=== PATIENT | male | born 1950 | race Caucasian/White ===

== ENCOUNTER 2017-02-01 08:13 | Inpatient (IN) | payer OTHER, MEDICARE ==
[2017-01-14 12:03] VITALS: BMI 33.0
--- NOTE | 2017-01-14 12:30 | PAT Medication Instructions ---
Service Date Jan 14, 2017. Current Home Medication List Etodolac (Etodolac), 400 MG PO PRN PRN for Pain Multiple Vitamins W/ Minerals (Centrum Silver Adult 50+), 1 TAB PO QAM Omeprazole (Prilosec), 20 MG PO QAM PRN for ACID REFLUX Medication Instructions For Your Scheduled Surgery - Hold the following medications the morning of surgery: Etodolac (Etodolac), 400 MG PO PRN PRN for Pain (otherwise okay to continue per surgeon) Multiple Vitamins W/ Minerals (Centrum Silver Adult 50+), 1 TAB PO QAM - Take the following medications the morning of surgery with a sip of water OTHERWISE NOTHING TO EAT OR DRINK AFTER MIDNIGHT: Omeprazole (Prilosec), 20 MG PO QAM PRN for ACID REFLUX If you have any questions please call us at [phone] or [phone] or [phone]
[2017-01-14 13:02] LABS: BASO % 0.6 %; BASO ABS # 0.04 K/uL (0-0.2); COMPLETE YES; EOS % 4.2 %; HEMATOCRIT 40.8 % (42-52); IG% 0.3 %; LYMPH % 29.8 %; MEAN CELL VOLUME 89.3 fL (80-100); MEAN CORPUSCULAR HEMOGLOBIN 31.5 pg (25-34); MEAN CORPUSCULAR HGB CONC 35.3 g/dl (32-36); MEAN PLATELET VOLUME 8.9 fL (7.4-10.4); MONO % 7.7 %; NEUT % 57.4 %; PLATELET COUNT 219 K/uL (130-400); RED BLOOD COUNT 4.57 M/uL (4.7-6.1); WHITE BLOOD COUNT 6.37 K/uL (4.8-10.8)
[2017-01-14 13:04] LABS: URINE APPEARANCE CLEAR (CLEAR); URINE BILIRUBIN NEG (NEG); URINE COLOR YELLOW; URINE NITRITE NEG (NEG); URINE PH 6.5 (4.5-7.5); URINE SPECIFIC GRAVITY 1.014 (1.000-1.030); UROBILINOGEN NEG (NEG); ZZUR CULT IF INDIC CLEAN CATCH NO
[2017-01-14 13:09] LABS: MANUAL MICROSCOPIC REQUIRED? NO; REVIEW REQ? NO
[2017-01-14 13:17] LABS: PROTHROMBIN TIME (PATIENT) 10.2 SECONDS (9.0-12.0)
[2017-01-14 13:25] LABS: BUN/CREATININE RATIO 9.9 (10-20); CALCIUM 8.4 mg/dl (8.5-10.1); CREATININE 1.1 mg/dl (0.60-1.40); POTASSIUM 4.3 mmol/L (3.5-5.1)
--- NOTE | 2017-01-14 13:33 | DIAGNOSTIC IMAGING REPORT ---
CHEST PREADMISSION(PA/LAT) CLINICAL HISTORY: PAT preoperative evaluation COMPARISON STUDY: 05/08/2014 FINDINGS: Moderate tortuosity thoracic aorta. Lungs are considered clear. Diaphragms are smooth. IMPRESSION: No acute process. Electronically signed by: Shaq Pollack M.D. 01/14/2017 1:31 PM Dictated Date/Time: 01/14/2017 1:31 PM
--- NOTE | 2017-01-29 15:12 | HISTORY & PHYSICAL EXAMINATION ---
DATE OF ADMISSION: 02/01/2017 CHIEF COMPLAINT: Right knee pain. HISTORY OF PRESENT ILLNESS: Mr. Hill is a 66-year-old male with a 15-year history of pain in his right knee. The patient states his pain has worsened over the last 6 months. He has pain with his daily activities. He has limited standing and walking tolerance. Pain is worse with weightbearing. The patient has had injections, anti-inflammatories, and home exercise program without relief. He has failed conservative treatment and is scheduled for right knee replacement. PAST MEDICAL HISTORY: Spinal stenosis. He denies heart disease, diabetes or DVT. PAST SURGICAL HISTORY: Hernia repair, rotator cuff surgery, jaw surgery and inguinal hernia repair. SOCIAL HISTORY: The patient drinks 3 drinks per week. He denies tobacco use. He lives in a 2-story home. He is and retired. FAMILY HISTORY: Negative for DVT. MEDICATIONS: Etodolac 400 mg b.i.d., omeprazole 20 mg daily, Centrum Silver 1 daily. ALLERGIES: None. REVIEW OF SYSTEMS: See HPI. Ten other systems reviewed, all negative. PHYSICAL EXAMINATION: VITAL SIGNS: Height 5 feet 8 inches, weight 218 pounds, BMI is 33. GENERAL: This is a well-developed, well-nourished male who is alert and oriented x3. Mood and affect are appropriate. HEENT: Normocephalic, atraumatic. Mucous membranes are moist and intact. NECK: Supple without lymphadenopathy. HEART: Regular rate and rhythm without murmurs, rubs or gallops. LUNGS: Clear to auscultation without wheezes or rhonchi. ABDOMEN: Soft and nontender. Bowel sounds are equal and active. EXTREMITIES: No ecchymosis, redness or warmth. Thigh and calf are soft and nontender. He has varus deformity. Range of motion is from 0-115 degrees with +1 laxity. He is neurovascularly intact with +5/5 strength. X-RAY EXAMINATION: AP and lateral views show joint space narrowing and osteophyte formation. IMPRESSION: Degenerative joint disease, right knee. PLAN: The patient will be admitted for a right total knee arthroplasty. We will plan on aspirin for DVT prophylaxis. The patient's PCP is Dr. Terrence Yen. He will have [facility] for home physical therapy.
[2017-02-01] VITALS (9 sets, daily range): BP systolic 124–159; BP diastolic 73–87; PULSE 62–84; TEMP 36.4–36.9; O2SAT 94–97; Ht 175.3 cm; Wt 99.8 kg
[~2017-02-01] VITALS: Ht 175.3 cm; Wt 99.8 kg
[~2017-02-01 08:13] MED LIST: ACETAMINOPHEN 500 MG TAB PO SCH; BUPIVACAINE 0.5 % 5 MG/1 ML PF 10ML VIAL ONE; CEFAZOLIN 2000 MG/60 ML D5W 60 ML IV SCH; CeleBREX 200 MG CAP PO SCH; DEXAMETHASONE 4 MG TAB PO SCH; ETOD400T PO; FAMOTIDINE 20 MG TAB PO SCH; GABAPENTIN 300 MG CAP PO SCH; LACTATED RINGER'S 1000ML 1,000 ML IV SCH; LACTATED RINGER'S 1000ML 500 ML IV ONE; LACTATED RINGER'S 1000ML IV SCH; METOCLOPRAMIDE HCL 10 MG TAB PO SCH; MULT-845 PO; NURSING VERBAL MED ORDER STA; OXYCODONE HCL 10 MG TABCR (OXYCONTIN) PO SCH; POLYMYXIN B SULFATE 100,000 UNITS in NSS 100ML IR SCH; PRLSR20 PO; ROPIVACAINE 5MG/ML 30 ML 150 MG, BUPIVACAINE/EPINEPHR 0.5% MPF 30 ML, KETOROLAC TROMETH... INFIL SCH; VANCOMYCIN INJ 400 MG in NSS 100ML IR SCH
[2017-02-01] MEDS ORDERED: EpHEDrine SULFATE INJ 50 MG/ML AMP IV PRN (09:00)
[2017-02-01] MEDS ORDERED: MEPERIDINE HCL 25 MG/ML CARP IV PRN (09:00)
[2017-02-01] MEDS ORDERED: ONDANSETRON INJ 2 MG/ML 2 ML VIAL IV PRN ×2 (09:00→11:45)
[2017-02-01] MEDS ORDERED: ATROPINE SULFATE 0.1 MG/ML 5ML SYR IV PRN (09:00)
[2017-02-01] MEDS ORDERED: MoRPHine SULFATE 10 MG/ML CARP/VIAL IV PRN (09:00)
[2017-02-01] MEDS ORDERED: FENTANYL CITRATE INJ 50 MCG/1 ML 2 ML VIAL IV PRN (09:00)
--- NOTE | 2017-02-01 09:35 | History & Physical Bridge Note ---
H&P Re-Evaluation Bridge Note: I have examined the patient, reviewed the History & Physical and in the interval since the performance of the History & Physical I have noted the following changes of clinical significance: No changes noted
[2017-02-01] MEDS ORDERED: MIDAZOLAM HCL 1 MG/ML 2ML VIAL ONE (09:48)
[2017-02-01] MEDS ORDERED: FENTANYL CITRATE INJ 50 MCG/1 ML 2 ML VIAL ONE (09:48)
[2017-02-01] MEDS ORDERED: ORTHO JOINT ANESTHETIC ONE (10:21)
[2017-02-01] MEDS ORDERED: BUPIVACAINE/EPINEPHRINE 0.25% 1:200,000 30 ML VIAL ONE (10:22)
[2017-02-01] MEDS ORDERED: POVIDONE-IODINE OP SOLN 30 ML BTL ONE (10:22)
[2017-02-01] MEDS ORDERED: BACITRACIN 50000 UNIT VIAL ONE (10:22)
[2017-02-01] MEDS ORDERED: LIDOCAINE HCL 2% 2 ML VIAL (20MG/ML) ONE (11:29)
[2017-02-01] MEDS ORDERED: PROPOFOL IV EMULSION 10 MG/ML 20 ML VIAL IV ONE (11:29)
--- NOTE | 2017-02-01 11:43 | [facility] Post Operative Brief Note ---
Immediate Operative Summary Operative Date Feb 01, 2017. Pre-Operative Diagnosis Right knee degenerative joint disease Post-Operative Diagnosis Right knee degenerative joint disease Procedure(s) Performed Right total knee arthroplasty Surgeon Dr. Andrea Barksdale Swatch Folder Surgeon(s) William Craft PA-C Estimated Blood Loss 75ml Findings djd Specimens A. Right knee bone and tissue Complication(s) None Disposition Recovery Room / PACU
[2017-02-01] MEDS ORDERED: ALUMINUM/MAGNESIUM/SIMETH (MAALOX MAX) 30 ML UDC PO PRN (11:45)
[2017-02-01] MEDS ORDERED: DiphenhydrAMINE HCL 50 MG/ML VIAL IV PRN (11:45)
[2017-02-01] MEDS ORDERED: MoRPHine SULFATE 2 MG/ML CARP IV PRN (11:45)
[2017-02-01] MEDS ORDERED: ZOLPIDEM TARTRATE 5 MG TAB PO PRN (11:45)
[2017-02-01] MEDS ORDERED: TRAMADOL HCL 50 MG TAB PO PRN (11:45)
[2017-02-01] MEDS ORDERED: SOD PHOSPHATE/SOD BIPHOSPHATE ENEMA 132 ML BTL PR PRN (11:45)
[2017-02-01] MEDS ORDERED: MAGNESIUM HYDROXIDE SUSP 30 ML UDC PO PRN (11:45)
[2017-02-01] MEDS ORDERED: KETOROLAC TROMETHAMINE 15 MG/ML VIAL IV. PRN (11:45)
[2017-02-01] MEDS ORDERED: BISACODYL 10 MG SUPP PR PRN (11:45)
[2017-02-01] MEDS ORDERED: METOCLOPRAMIDE HCL INJ 5 MG/ML 2 ML VIAL IV PRN (11:45)
--- NOTE | 2017-02-01 12:52 | DIAGNOSTIC IMAGING REPORT ---
RIGHT KNEE 2 VIEWS History: Right total knee arthroplasty. Degenerative arthritis. Postop. FINDINGS: The patient is status post a right total knee arthroplasty. The hardware is intact. No fracture or dislocation. Surgical drains are in place. IMPRESSION: Right total knee arthroplasty. No evidence for hardware complication. Electronically signed by: James Cannon M.D. 02/01/2017 12:50 PM Dictated Date/Time: 02/01/2017 12:49 PM
--- NOTE | 2017-02-01 13:30 | Anesthesiology Progress Note ---
Anesthesia Post Op Note Date & Time Feb 01, 2017 at 13:30 Vital Signs Pain Intensity: 0 Vital Signs Past 12 Hours Date Time Temp Pulse Resp B/P Pulse Ox O2 Delivery O2 Flow Rate FiO2 02/01/17 13:25 36.8 64 12 123/72 97 Nasal Cannula 2 02/01/17 13:15 66 18 123/72 97 Nasal Cannula 2 02/01/17 13:05 60 12 117/75 95 Nasal Cannula 2 02/01/17 12:55 68 12 118/76 94 Nasal Cannula 2 02/01/17 12:45 66 19 112/71 96 Nasal Cannula 2 02/01/17 12:35 70 18 127/74 96 Nasal Cannula 2 02/01/17 12:25 71 15 124/70 95 Nasal Cannula 2 02/01/17 12:19 36.5 77 18 122/75 95 Nasal Cannula 2 02/01/17 08:30 36.6 84 20 142/84 96 Room Air Notes Mental Status: alert / awake / arousable, participated in evaluation Pt Amnestic to Procedure: Yes Nausea / Vomiting: adequately controlled Pain: adequately controlled Airway Patency, RR, SpO2: stable & adequate BP & HR: stable & adequate Hydration State: stable & adequate Neuraxial Anesthesia: was administered, sensory block is resolving Anesthetic Complications: no major complications apparent
[2017-02-01] MEDS: TRANEXAMIC ACID INJ 1,000 MG in SODIUM CHLORIDE 0.9% 100ML 100 ML IV SCH ×2 (14:25→14:27)
[2017-02-01] MEDS: D5W AND 1/2NSS + 20MEQ KCL 1,000 ML IV SCH ×2 (14:49→23:47)
[2017-02-01] MEDS: ACETAMINOPHEN 500 MG TAB PO SCH ×2 (14:49→21:44)
--- NOTE | 2017-02-01 17:35 | OPERATIVE REPORT ---
DATE OF OPERATION: 02/01/2017 PREOPERATIVE DIAGNOSIS: Degenerative arthritis, right knee. POSTOPERATIVE DIAGNOSIS: Same. PROCEDURE: Right total knee with patient matched implant. SURGEON: Dr. Barksdale. FRAMING MILL SUPERVISOR: JOSE Morillo. ANESTHESIA: Spinal. BLOOD LOSS: 75 mL. REPLACEMENT FLUIDS: 1500 mL crystalloid. DRAINS: Hemovac x2. CULTURES: None. COMPLICATIONS: None. COMPONENTS USED: [facility] Knee System: Femur size 9, tibia size 8 x 9, patella size 41. NOTE: JOSE Morillo was present and assisted throughout due to the complicated nature of this case. He helped with preparation and set up, he first assisted throughout and personally closed the capsule, subcutaneous and skin layers and applied the postoperative dressing. DESCRIPTION: Following satisfactory spinal, the patient was supine. A tourniquet was placed but not inflated. The lower extremity was prepared with ChloraPrep and draped sterilely. Following a surgical time-out, a midline incision was made with a median parapatellar arthrotomy. The knee showed grade 4 changes most marked in the medial and patellofemoral compartments. The anterior cruciate ligament was absent. The posterior cruciate ligament was excised and the patient matched femoral block was applied. Femoral distal rotation and resection were set and completed. The 4-in-1 block was used to finish preparation of the femur. The patient matched tibial block was applied. Tibial resection was completed. The patella was freehand cut. Soft tissue balancing was completed and a trial reduction showed good tensioning and stability on the collateral ligaments, stable range of motion, and the patella tracked well. The trial components were removed. The capsule was prepared with the orthopedic cocktail. After irrigation, the components were cemented using Simplex G cement. A Betadine soak was performed. When the cement had hardened, the Betadine was irrigated. Two drains were placed. The arthrotomy was closed with a running suture of 0 V-Loc. The subcutaneous tissues with 2-0 Vicryl and the skin with a running subcuticular stitch of 3-0 V-Loc. Dermabond and a dry dressing were applied. The patient was returned to his bed in stable condition. I attest to the content of the Intraoperative Record and any orders documented therein. Any exceptio ns are noted below.
[2017-02-01] MEDS ORDERED: TRANEXAMIC ACID INJ 1,000 MG in SODIUM CHLORIDE 0.9% 100ML 100 ML IV SCH (18:00)
[2017-02-01] MEDS: CEFAZOLIN IV 2,000 MG in DEXTROSE 5% 50ML 50 ML IV SCH (18:05)
[2017-02-01] MEDS: OXYCODONE HCL 10 MG TABCR (OXYCONTIN) PO SCH (20:44)
[2017-02-01] MEDS: ASPIRIN 81 MG ECTAB PO SCH (20:45)
[2017-02-01] MEDS ORDERED: SENNA 8.6 MG TAB PO SCH (21:00)
[2017-02-01] MEDS: OXYCODONE HCL IR 5 MG TAB (IMMEDIATE RELEASE) PO PRN (23:50)
[2017-02-02] MEDS: CEFAZOLIN IV 2,000 MG in DEXTROSE 5% 50ML 50 ML IV SCH (01:51)
[2017-02-02 03:32] VITALS: BP 117/72; PULSE 70; TEMP 36.6; O2SAT 95
[2017-02-02] MEDS: ACETAMINOPHEN 500 MG TAB PO SCH ×2 (05:36→14:12)
[2017-02-02 07:00] VITALS: BP 118/76; PULSE 65; O2SAT 93
--- NOTE | 2017-02-02 07:40 | Orthopedic Progress Note ---
Orthopedic Progress Note Date of Service Feb 02, 2017. Subjective Post OP Day: 1 Reports: feeling well, Denies: SOB, calf pain, chest pain, light headedness, nausea / vomiting Objective calves soft nontender, N/V intact, dressing C/D/I, A&O x3, toes mobile, hemovac drainage (300ml last shift) Date Time Temp Pulse Resp B/P Pulse Ox O2 Delivery O2 Flow Rate FiO2 02/02/17 03:32 36.6 70 15 117/72 95 Room Air 02/02/17 00:15 Room Air 02/01/17 23:30 36.4 69 18 159/80 97 Room Air 02/01/17 19:20 36.7 77 18 135/87 94 Nasal Cannula 2.0 02/01/17 17:37 67 16 133/82 97 Nasal Cannula 2.0 02/01/17 16:15 96 Nasal Cannula 2.0 02/01/17 16:01 65 16 129/81 02/01/17 15:11 73 16 130/81 02/01/17 14:16 62 16 124/76 02/01/17 13:50 36.9 69 16 125/73 96 Nasal Cannula 2.0 02/01/17 13:50 96 Nasal Cannula 2.0 02/01/17 13:50 96 Nasal Cannula 2.0 02/01/17 13:25 36.8 64 12 123/72 97 Nasal Cannula 2 02/01/17 13:15 66 18 123/72 97 Nasal Cannula 2 02/01/17 13:05 60 12 117/75 95 Nasal Cannula 2 02/01/17 12:55 68 12 118/76 94 Nasal Cannula 2 02/01/17 12:45 66 19 112/71 96 Nasal Cannula 2 02/01/17 12:35 70 18 127/74 96 Nasal Cannula 2 02/01/17 12:25 71 15 124/70 95 Nasal Cannula 2 02/01/17 12:19 36.5 77 18 122/75 95 Nasal Cannula 2 02/01/17 08:30 36.6 84 20 142/84 96 Room Air Laboratory Results 24 Hours: Test 02/02/17 07:22 Assessment & Plan Assessment: POD 1 s/p Right TKA Plan: PT/OT Planning for home with [facility] Possible dc to home today. Inhouse Planning Pain Management: Celebrex, Toradol, Oxycontin, Ultram, PO Tylenol, Oxy IR DVT Prophylaxis: TEDs, SCDs, ASA Discharge Planning Discharge Planning: home with home health Pain Management: Morphine (MS Contin), PO Tylenol, Oxy IR DVT Prophylaxis: TEDs, ASA Therapy: Physical Therapy
--- NOTE | 2017-02-02 07:44 | Discharge Instructions ---
Discharge Instructions Date of Service Feb 02, 2017. Admission Reason for Admission: Right Knee Degenerative Arthritis Discharge Discharge Diagnosis / Problem: Right Knee Djd Discharge Goals Goal(s): Decrease discomfort, Improve function Activity Recommendations Activity Limitations: per Instructions/Follow-up section Weightbearing Status: Right weightbearing (as tolerated) . Instructions / Follow-Up Instructions / Follow-Up ACTIVITY RECOMMENDATIONS: SELF CARE INSTRUCTIONS AFTER TOTAL KNEE REPLACEMENT A. You may need to continue a physical therapy program after discharge from the hospital. There are several options available to you. Your doctor will assist you in selecting the best one for you. 1. An out-patient facility 2 to 3 times a week for therapy or home therapy. 2. Continue working on all exercises taught to you in the hospital. Your goals should be to increase bending of your knee to 90 degrees and beyond and to fully straighten your knee. B. You may progress at your own pace from walking with a walker or crutches to a cane; then to no assistive devices. C. Make walking a part of your daily routine. Be up as much as comfortable with rest periods throughout the day. Rest with leg elevation is very important. Use the ice wrap frequently for the first 3-4 weeks. D. There are no restrictions on activities. You may ride in a car, shop, participate in patient portal representative and all social activities. E. Wear the long elastic stockings (RACHAEL hose) 20 hours a day for 2 weeks after surgery. They can be removed several times a day for laundering and for a bath. F. You may shower, no tub baths until cleared by your doctor. SPECIAL CARE INSTRUCTIONS: VERY IMPORTANT TO READ AND REVIEW A. There are a few signs you need to watch for after you are home. Call [facility] if you notice any of the followin. Increased severe knee pain. Some pain is expected especially when you exercise. 2. Increased swelling in your leg or knee; pain or swelling of the calf muscle in either lower leg. 3. Any fluid drainage from the incision. 4. Shortness of breath or chest pain. B. Please call [facility] at if you have any concerns or questions about your operation or recovery. The doctor or his nurse will return your call promptly. C. You must take antibiotics before dental work, bladder, bowel or other surgery. Your doctor will provide you with a permanent care to carry describing this precaution. IMPORTANT: * REMEMBER TO TAKE ASPIRIN, 81 MG, TWICE DAILY FOR 4 WEEKS UNLESS OTHERWISE DIRECTED. THIS IS YOUR BLOOD THINNER. * HIGH RISK PATIENTS MAY BE PRESCRIBED A STRONGER BLOOD THINNER. THIS WILL BE PROVIDED AT DISCHARGE. * CALL IF INCREASED PAIN, REDNESS, DRAINAGE OR FEVER GREATER THAT 101. * WEAR RACHAEL HOSE 20 HOURS PER DAY FOR 2 WEEKS. * DERMABOND Prineo- This is a mesh tape dressing that is covered with glue. It should remain in place until the incision is properly healed, usually 10-14 days. This dressing is designed to naturally slough off. You may trim the excess mesh tape as it peels off. Incision may be briefly wet in a shower. Dry immediately by blotting with a clean, dry towel. Do not bath or swim until instructed by your doctor. Do not scratch, rub, or pick at the dressing. Do not apply any topical ointments or lotions until dressing is completely removed and/or instructed by your doctor. There may be a small piece of suture material at one end of your incision. Do not pull or trim this. If it is bothersome or catching on clothing, you may cover it with a band-aid. . FOLLOW UP VISIT: If appointment is not already scheduled: Please call [facility] to make a follow-up appointment for 2 weeks after your surgery at . Current Hospital Diet Patient's current hospital diet: Regular Diet Discharge Diet Recommended Diet: Regular Diet Procedures Procedures Performed: Right total knee arthroplasty Pending Studies Studies pending at discharge: no Medical Emergencies . Who to Call and When: Medical Emergencies: If at any time you feel your situation is an emergency, please call 911 immediately. . Non-Emergent Contact Non-Emergency issues call your: Surgeon Call Non-Emergent contact if: temperature is above 101.5, your pain is not controlled, your pain is worsening, wound has increased drainage, wound has increased redness . "Provider Documentation" section prepared by William Craft. VTE Core Measure Inpt VTE Proph given/why not?: Other Anticoagulation, T.E.D. Stockings, SCD's [place] Drug Monitoring Program Search Results: patient reviewed within database, no issues identified
[2017-02-02] MEDS ORDERED: ONDA8TAB6 PO (07:46)
[2017-02-02] MEDS ORDERED: ACET-1138 PO (07:46)
[2017-02-02] MEDS ORDERED: RXC5 PO (07:46)
[2017-02-02] MEDS ORDERED: SNK PO (07:46)
[2017-02-02] MEDS ORDERED: ASPEC81 PO (07:46)
[2017-02-02] MEDS ORDERED: MORP15TA19 PO (07:48)
--- NOTE | 2017-02-02 07:48 | Anesthesiology Progress Note ---
Anesthesia Post Op Note Date & Time Feb 02, 2017 at 07:47 Vital Signs Pain Intensity: 6.0 Vital Signs Past 12 Hours Date Time Temp Pulse Resp B/P Pulse Ox O2 Delivery O2 Flow Rate FiO2 02/02/17 03:32 36.6 70 15 117/72 95 Room Air 02/02/17 00:15 Room Air 02/01/17 23:30 36.4 69 18 159/80 97 Room Air Notes Mental Status: alert / awake / arousable, participated in evaluation Pt Amnestic to Procedure: Yes Nausea / Vomiting: adequately controlled Pain: adequately controlled Airway Patency, RR, SpO2: stable & adequate BP & HR: stable & adequate Hydration State: stable & adequate Anesthetic Complications: no major complications apparent
[2017-02-02 07:49] LABS: HEMATOCRIT 35.7 % (42-52); MEAN CELL VOLUME 88.6 fL (80-100); MEAN CORPUSCULAR HEMOGLOBIN 31.5 pg (25-34); MEAN CORPUSCULAR HGB CONC 35.6 g/dl (32-36); MEAN PLATELET VOLUME 8.7 fL (7.4-10.4); PLATELET COUNT 201 K/uL (130-400); RED BLOOD COUNT 4.03 M/uL (4.7-6.1); WHITE BLOOD COUNT 11.85 K/uL (4.8-10.8)
[2017-02-02 08:12] LABS: BUN/CREATININE RATIO 15.6 (10-20); CALCIUM 7.8 mg/dl (8.5-10.1); CREATININE 1.1 mg/dl (0.60-1.40); POTASSIUM 4.4 mmol/L (3.5-5.1)
[2017-02-02] MEDS: OXYCODONE HCL 10 MG TABCR (OXYCONTIN) PO SCH (08:27)
[2017-02-02] MEDS: ASPIRIN 81 MG ECTAB PO SCH (08:30)
[2017-02-02] MEDS: OXYCODONE HCL IR 5 MG TAB (IMMEDIATE RELEASE) PO PRN ×2 (08:33→14:14)
[2017-02-02] MEDS ORDERED: PANTOprazole SOD 40 MG TAB PO SCH (09:00)
[2017-02-02] MEDS ORDERED: MULTIVITAMIN TAB PO SCH (09:00)
[2017-02-02] MEDS: D5W AND 1/2NSS + 20MEQ KCL 1,000 ML IV SCH (10:30)
[2017-02-02] MEDS ORDERED: CLB200 PO (12:08)
[2017-02-02 12:30] VITALS: BP 143/85; PULSE 68; PULSE 70; TEMP 36.6; O2SAT 98
[2017-02-02 12:32] VITALS: BP 143/85; PULSE 70; TEMP 36.6; O2SAT 98
--- NOTE | 2017-02-03 13:35 | DISCHARGE SUMMARY ---
DISCHARGE DIAGNOSIS: Degenerative joint disease, right knee. SECONDARY DIAGNOSES: Spinal stenosis. CONSULTS: None. COMPLICATIONS: None. PROCEDURES: Right total knee arthroplasty performed by Dr. Fernando Barksdale on 02/01/2017. BRIEF HISTORY: As dictated in the history and physical. HOSPITAL SUMMARY: The patient was admitted on the above date and had the above-noted surgery performed which he tolerated well. On the first postoperative day, patient was feeling well and had no complaints. Calves were soft and nontender, neurovascularly intact. Dressings clean, dry and intact. Toes were mobile and Hemovac drainage was 300 mL the last shift. Vital signs were stable. He was afebrile and hemoglobin was 12.7. The patient was started on physical therapy protocol and continued on DVT prophylaxis and pain management. He was progressing well with his physical therapy and it was felt that he was remaining stable and it was felt he could be discharged to home with [facility] services with plans for drain removal at home the following day. For further review, please see chart. LAB AND X-RAY DATA: As per chart. DISCHARGE INSTRUCTIONS: The patient was discharged to home in satisfactory condition on 02/02/2017. DIET: Regular. ACTIVITY: Follow TKA instruction sheets and special care instructions as noted. Weightbearing as tolerated right lower extremity. Follow up with Dr. Fernando Barksdale in 2 weeks. The patient to call for appointment if one has not been made for you. DISCHARGE MEDICATIONS: Acetaminophen 1000 mg p.o. q. 8 hours for 30 days, aspirin 81 mg p.o. b.i.d., Celebrex 200 mg p.o. b.i.d., MS Contin 15 mg p.o. q. 12 hours, oxycodone 5-10 mg p.o. q. 4 hours p.r.n., senna 17.2 mg p.o. at bedtime. Resume taking multivitamin 1 tab p.o. q.a.m. and omeprazole 20 mg p.o. q.a.m. p.r.n. Stop taking etodolac.
[2017-02-03] MEDS ORDERED: CeleBREX 200 MG CAP PO SCH (21:00)
[2017-09-09] MEDS ORDERED: ETOD400T PO ×2 (10:24→11:47)
[2017-09-09] MEDS ORDERED: LDN500 (10:24)
[2017-09-09] MEDS ORDERED: PRLSR20 PO (11:47)
[2017-09-09] MEDS ORDERED: MULT-1093 PO (11:47)
== END 2017-02-02 15:30 | disposition home health service (06) | DRG 470 ==
LOC: ENRESERVDT → ENRESERVTM → C.ACU 08:13 → C.3E 08:48
PROVIDERS: ADMIT Orthopaedic Surgery; ATTEND Orthopaedic Surgery
PROC: 0SRC0J9 Replacement of Right Knee Joint with Synthetic Substitute, Cemented, Open Approach (ICD-10-PCS; principal; 2017-02-01 10:15)
DX: M17.11 Unilateral primary osteoarthritis, right knee (principal); M48.00 Spinal stenosis, site unspecified; E66.9 Obesity, unspecified; K21.9 Gastro-esophageal reflux disease without esophagitis; M54.5 Low back pain; Z79.899 Other long term (current) drug therapy; Z68.33 Body mass index [BMI] 33.0-33.9, adult; Z79.1 Long term (current) use of non-steroidal anti-inflammatories (NSAID)

== ENCOUNTER 2017-09-29 10:06 | Inpatient (IN) | payer OTHER, MEDICARE ==
[2017-09-09 11:31] VITALS: BMI 32.0
--- NOTE | 2017-09-28 19:26 | HISTORY & PHYSICAL EXAMINATION ---
DATE OF ADMISSION: 09/29/2017 CHIEF COMPLAINT: Chronic right knee pain. HISTORY OF PRESENT ILLNESS: This is a 67-year-old male patient of Dr. Gonzalez who underwent a total knee replacement in January of 2017. Since then, he has had increased popping, grinding and lateral sided pain, specifically when he goes up and down inclines. He reports no trauma, but has had increased pain without response to conservative treatment. PAST MEDICAL HISTORY: Osteoarthritis, spine problems, spinal stenosis, acid reflux, basal cell carcinoma. SOCIAL HISTORY: Nonsmoker, occasional drinker. PAST SURGICAL HISTORY: Abdominal hernia, jaw surgery, shoulder surgery, inguinal hernia and total knee replacement as mentioned above on the right. FAMILY HISTORY: Noncontributory. REVIEW OF SYSTEMS: The patient complains of chronic right knee popping, grinding and lateral sided pain. Otherwise, denies any shortness of breath, chest pain, nausea, vomiting or any other joint complaints. MEDICATIONS: Include etodolac 400 mg as needed, omeprazole 20 mg daily as needed and a Centrum Silver multivitamin daily. ALLERGIES: INCLUDE A POSSIBLE ALLERGY TO SUTURE MATERIAL FOLLOWING A TOTAL KNEE REPLACEMENT IN 2016, WHERE HE HAD SEVERE HIVES. Otherwise, no known drug allergies. PHYSICAL EXAMINATION: GENERAL: Well-developed, well-nourished 67-year-old male in no acute distress. He is alert and oriented x3 and pleasant. HEENT: Normocephalic, atraumatic. Extraocular motions are intact. Pupils are equal and reactive to light. HEART: Regular rate and rhythm, no murmurs appreciated. LUNGS: Clear. ABDOMEN: Soft and nontender. Bowel sounds are present. EXTREMITIES: Right knee reveals a limited range of motion of 0-120 degrees with pain. He has a varus deformity. He has no crepitation noted. He has 5/5 strength again with pain. NEUROLOGIC: Neurovascularly he is intact in his right lower extremity. DIAGNOSES: Right knee chronic pain status post total knee replacement. He also has a history of osteoarthritis, spine problems, spinal stenosis, acid reflux and basal cell carcinoma. PLAN: The patient was advised of his diagnosis. Indications, risks, benefits, postop course have all been reviewed. The patient wishes to proceed with a right medial retinacular repair, lateral release with a possible patellar revision. Necessary consent forms, preoperative testing and clearances will be obtained.
[~2017-09-29] VITALS: Ht 175.3 cm; Wt 98.6 kg
[2017-09-29] VITALS (7 sets, daily range): BP systolic 133–150; BP diastolic 83–90; PULSE 62–87; TEMP 36.4–37.2; O2SAT 93–96; Ht 175.3 cm; Wt 98.6 kg
[2017-09-29] MEDS: TRANEXAMIC ACID INJ 1,000 MG in SYRINGE 0 ML IV SCH ×2 (06:00→06:30)
[~2017-09-29 10:06] MED LIST changes: +BUPIVACAINE 0.25% 30 ML VIAL ONE; -CEFAZOLIN 2000 MG/60 ML D5W 60 ML IV SCH; +CEFAZOLIN 2000MG IV PUSH 10 ML IV SCH; +EpINEphrine INJ 1MG/ML AMP 1 MG/ML AMP ONE; +MULT-1093 PO; -MULT-845 PO; -NURSING VERBAL MED ORDER STA; -OXYCODONE HCL 10 MG TABCR (OXYCONTIN) PO SCH; -POLYMYXIN B SULFATE 100,000 UNITS in NSS 100ML IR SCH; -ROPIVACAINE 5MG/ML 30 ML 150 MG, BUPIVACAINE/EPINEPHR 0.5% MPF 30 ML, KETOROLAC TROMETH... INFIL SCH; -VANCOMYCIN INJ 400 MG in NSS 100ML IR SCH
[2017-09-29] MEDS ORDERED: PHENYLEPHRINE 100MCG/ML 5ML SYR IV PRN (12:15)
[2017-09-29] MEDS ORDERED: LABETALOL HCL IV 5 MG/ML 20ML IV PRN (12:15)
[2017-09-29] MEDS ORDERED: MEPERIDINE HCL 25 MG/ML CARP IV PRN (12:15)
[2017-09-29] MEDS ORDERED: ATROPINE SULFATE 0.1 MG/ML 5ML SYR IV PRN (12:15)
[2017-09-29] MEDS ORDERED: ONDANSETRON INJ 2 MG/ML 2 ML VIAL IV PRN ×2 (12:15→16:45)
[2017-09-29] MEDS ORDERED: NALOXONE HCL 0.4 MG/1 ML VIAL/CARP IV PRN (12:15)
[2017-09-29] MEDS ORDERED: EpHEDrine SULFATE INJ 50 MG/ML AMP IV PRN (12:15)
[2017-09-29] MEDS ORDERED: HYDROmorphone INJ 2 MG/ML SYR/VIAL IV PRN (12:15)
[2017-09-29] MEDS ORDERED: FLUMAZENIL 0.1 MG/1 ML 10 ML VIAL IV PRN (12:15)
[2017-09-29] MEDS ORDERED: FENTANYL CITRATE INJ 50 MCG/1 ML 2 ML VIAL IV PRN (12:15)
[2017-09-29] MEDS ORDERED: POVIDONE-IODINE OP SOLN 30 ML BTL ONE (13:08)
[2017-09-29] MEDS ORDERED: BACITRACIN 50000 UNIT VIAL ONE ×2 (13:08→15:28)
[2017-09-29] MEDS ORDERED: MIDAZOLAM HCL 1 MG/ML 2ML VIAL ONE ×2 (13:13→14:40)
[2017-09-29] MEDS ORDERED: ROPIVACAINE 5MG/ML 30 ML 150 MG, BUPIVACAINE 0.5% MPF INJ 30 ML, EpINEphrine HCL INJ 0.... INFIL SCH ×8 (14:30)
[2017-09-29] MEDS ORDERED: PROPOFOL IV EMULSION 10 MG/ML 20 ML VIAL IV ONE ×2 (14:53→16:19)
[2017-09-29] MEDS ORDERED: MoRPHine SULFATE 4 MG/ML 1 ML CARP\\VIAL IV PRN (16:45)
[2017-09-29] MEDS ORDERED: ALUMINUM/MAGNESIUM/SIMETH (MAALOX MAX) 30 ML UDC PO PRN (16:45)
[2017-09-29] MEDS ORDERED: CEFAZOLIN IV 2,000 MG in DEXTROSE 5% 50ML 50 ML IV SCH (16:45)
[2017-09-29] MEDS ORDERED: KETOROLAC TROMETHAMINE 15 MG/ML VIAL IV. PRN (16:45)
[2017-09-29] MEDS ORDERED: OXYCODONE HCL IR 5 MG TAB (IMMEDIATE RELEASE) PO PRN (16:45)
[2017-09-29] MEDS ORDERED: MoRPHine SULFATE 2 MG/ML CARP IV PRN (16:45)
--- NOTE | 2017-09-29 17:07 | [facility] Post Operative Brief Note ---
Immediate Operative Summary Operative Date Sep 29, 2017. Pre-Operative Diagnosis Right knee chronic pain status post total knee replacement, failed medial retinacular repair.patellofemoral malalignment Post-Operative Diagnosis Right knee chronic pain status post total knee replacement,attenuation medial retinacular repair, synovitis Procedure(s) Performed Right Knee patellofemoral realignment, VMO advancement, Medial Retinacular Repair and plication, partial synovectomy, Lateral Release Surgeon Dr. Darío Riggins [employer] Waste Management Technician Surgeon(s) William Craft PA-C Estimated Blood Loss 5ml Findings as above Specimens Micro #1: Right knee incision-gram stain, anaerobic/aerobic, culture and sensitivity Drains 2 hemovac Anesthesia spinal Complication(s) None Disposition Recovery Room / PACU
--- NOTE | 2017-09-29 17:40 | Anesthesiology Progress Note ---
Anesthesia Post Op Note Date & Time Sep 29, 2017 at 17:40 Vital Signs Pain Intensity: 0 Vital Signs Past 12 Hours Date Time Temp Pulse Resp B/P (MAP) Pulse Ox O2 Delivery O2 Flow Rate FiO2 09/29/17 17:21 36.4 131/86 09/29/17 17:20 78 14 09/29/17 17:20 77 14 93 09/29/17 17:16 136/79 09/29/17 17:15 78 15 09/29/17 17:15 78 15 93 09/29/17 17:12 143/122 09/29/17 17:10 79 18 93 09/29/17 17:10 79 18 09/29/17 17:06 132/82 09/29/17 17:05 79 13 95 09/29/17 17:05 79 13 09/29/17 17:01 132/87 09/29/17 17:00 84 18 09/29/17 17:00 83 18 93 09/29/17 16:57 123/83 09/29/17 16:55 85 24 93 09/29/17 16:55 85 24 09/29/17 16:51 138/84 09/29/17 16:50 85 15 09/29/17 16:50 85 15 94 09/29/17 16:47 125/84 09/29/17 16:45 91 17 09/29/17 16:45 91 17 93 09/29/17 16:41 127/78 09/29/17 16:40 91 15 95 09/29/17 16:40 91 15 09/29/17 16:36 124/81 09/29/17 16:35 95 14 09/29/17 16:35 94 14 95 09/29/17 16:30 36.4 105 16 129/75 99 Nasal Cannula 4 09/29/17 10:48 36.7 62 18 150/90 95 Room Air Notes Mental Status: alert / awake / arousable, participated in evaluation Pt Amnestic to Procedure: Yes Nausea / Vomiting: adequately controlled Pain: adequately controlled Airway Patency, RR, SpO2: stable & adequate BP & HR: stable & adequate Hydration State: stable & adequate Neuraxial Anesthesia: was administered, sensory block is resolving Anesthetic Complications: no major complications apparent
--- NOTE | 2017-09-29 19:22 | OPERATIVE REPORT ---
DATE OF OPERATION: 09/29/2017 INDICATION FOR PROCEDURE: The patient is a 67-year-old male who had total knee replacement by Dr. Barksdale in the past. This was done just this last spring. He had complications postoperatively with some type of allergic reaction of his skin which was very significant. It went on to not clearly have infection, but had issues with ongoing knee pain and further diagnostic radiography demonstrates he has marked patellofemoral malalignment and clinically has very thin medial retinaculum with probable defect in his medial retinaculum area and was felt to have a medial retinacular repair failure somewhere along the way after surgery. He has had extensive conservative management and because of ongoing pain and weakness, he now presents for surgical repair. His knee is otherwise stable with regard to the polyethylene post and the collateral ligaments and he had excellent preop motion 0 through 135 degrees. 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 POSTOPERATIVE DIAGNOSES: Attenuation of medial retinacular repair with patellofemoral malalignment and synovitis, anterior knee. Status post prior total knee arthroplasty. PROCEDURE: Open patellofemoral realignment with VMO advancement and medial retinacular plication including suture anchors medial patella with lateral release and partial synovectomy, anterior knee. SURGEON: Darío Riggins MD. SPACE AND STORAGE CLERK: JOSE Morillo. ANESTHESIA: Spinal nerve block. OPERATIVE PROCEDURE: The patient taken to the operating room and placed supine on the operating room table. Pneumatic tourniquet was placed about his right upper thigh. His knee exam demonstrated he had lateral aligned patella, had good range of motion 0-135 degrees, had no instability and healed scar and defect in his VMO and medial retinacular area. He is a relatively thin individual. His right lower extremity was sterilely prepped and draped with ChloraPrep. The leg was elevated, exsanguinated with Esmarch bandage. Pneumatic tourniquet was raised to 300 mmHg. His old scar was used for incision. We made subcutaneous flaps exposing the extensor mechanism. The medial retinaculum had attenuated tissue along the medial retinaculum from the mid patella tendon around the medial retinaculum up into the lower quad tendon area. There was thin but intact tissues but the patella tracked laterally. Did have a knee effusion. Via the areas of thin attenuated tissue, I made an incision through the medial retinaculum leaving a cuff of tissue still on the medial patella. I extended this up into the mid third of the quadriceps tendon and down to the upper two-thirds of the patellar tendon only. We did get a culture of the fluid which looked benign. There was some synovitis and some fibrinous material just in the anterior knee very focally in the anterior knee area. I debrided out all this tissue and we looked at the rest of the knee and there was just some mild synovitis in the rest of the knee and did not have any evidence of clinically that would suggest any infection. The tibial polyethylene was intact and no damage. The patella polyethylene was all intact and the patient had an oval patella component. We assessed the patellar tracking and he had significant lateral tracking of the patella with passive range of motion. At this time, I first copiously irrigated the knee out with antibiotic solution with bacitracin and then we did remove all this fibrinous material with a rongeur and electrocautery. We used the electrocautery to do a partial electrocautery synovectomy. We did this around the anterior medial tibia area and then did do sharp dissection with a scalpel removing the fat pad off the patellar tendon. There was some thickened synovium around the lateral patella. We went ahead and removed this inflamed, thickened synovial tissue. There was no bone exposed on the patella at all and the patellar button was covering the patella fully and there was no damage to the polyethylene there. There was some thickened synovium around the superior patella which was removed and we removed the thickened synovium around the medial patella to expose the bone of the medial patella leaving the retinacular tissue that was still intact to the anterior patella intact for later plication. The knee was then copiously irrigated with pulsatile lavage with bacitracin. At this time, I did a lateral release starting at the muscle of the vastus lateralis and it was kept intact just anterior to the IT band, identified the geniculate vessels which we left intact. Then we proceeded down to the proximal tibia lateral patellar tendon area with a lateral release. Then we assessed the range of motion of the knee and patellar tracking and the patella tracked centrally without the repair of the medial retinaculum. At this time, then after further copious irrigation with antibiotic solution and bacitracin, we used a [employer] Acufex 2.8 mm suture anchors, they were placed transversely into the patella in the area of the medial retinaculum attachment site. We made 1 just superior to the midline of the patella and 1 just inferior to the midline of the patella at least a 1 cm to 12 mm gap between the 2 anchors. The upper bone was quite solid. The lower bone was soft but the anchors held well in the patella bone in both areas. The medial retinaculum and VMO were advanced distally and medially and sutured with horizontal mattress sutures to the bone in the medial patella. We also used the imbrication technique using the soft tissue that was still on the patella anteriorly and placed #2 FiberWire sutures and imbricated down to the free edge of the medial retinacular tissue using an inverted horizontal mattress plication suture. This was performed with 4 #2 FiberWires. I assessed range of motion of the patella and it tracked centrally and the repair was secure. Further additional fixation was performed with [id number] #2 FiberWire and #1 Vicryl sutures to complete the medial retinacular repair. The closure was performed over 2 Hemovac drains which were brought out laterally. We did irrigate out the knee joint using a Betadine soak as well and then further irrigation with pulsatile lavage antibiotic solution and bacitracin prior to the repair. The knee was taken through range of motion and the repair was secure and patella tracked centrally from 0 through 105 degrees range of motion without any tension on the repair. The subcutaneous tissues were then closed with [id number] 2-0 Vicryl sutures and the skin was closed with monica. Sterile dressings were applied and the tourniquet was let down. The patient tolerated the procedure well. JOSE Morillo was my benefits assistant. He functioned as sales assistants and salespersons performing the tasks of soft tissue retraction, leg positioning and he assisted in the subcutaneous and skin closure and will participate in some of the postoperative care of the patient. I attest to the content of the Intraoperative Record and any orders documented therein. Any exception s are noted below.
[2017-09-29] MEDS: ASPIRIN 81 MG ECTAB PO SCH (20:39)
[2017-09-29] MEDS ORDERED: SENNA 8.6 MG TAB PO SCH (21:00)
[2017-09-29] MEDS: D5W AND 1/2NSS + 20MEQ KCL 1,000 ML IV SCH (21:35)
[2017-09-29] MEDS: CEFAZOLIN IV 2,000 MG in SYRINGE 0 ML IV SCH (21:35)
[2017-09-29] MEDS: ACETAMINOPHEN 500 MG TAB PO SCH (21:36)
[2017-09-30] MEDS: D5W AND 1/2NSS + 20MEQ KCL 1,000 ML IV SCH ×2 (04:38→14:20)
[2017-09-30] MEDS: CEFAZOLIN IV 2,000 MG in SYRINGE 0 ML IV SCH (05:37)
[2017-09-30] MEDS: ACETAMINOPHEN 500 MG TAB PO SCH ×2 (05:37→14:05)
[2017-09-30] MEDS: TRAMADOL HCL 50 MG TAB PO PRN ×2 (06:03→14:04)
[2017-09-30 06:46] LABS: HEMATOCRIT 39.4 % (42-52); MEAN CELL VOLUME 91.6 fL (80-100); MEAN CORPUSCULAR HEMOGLOBIN 31.4 pg (25-34); MEAN CORPUSCULAR HGB CONC 34.3 g/dl (32-36); MEAN PLATELET VOLUME 9.1 fL (7.4-10.4); PLATELET COUNT 203 K/uL (130-400); WHITE BLOOD COUNT 8.27 K/uL (4.8-10.8)
[2017-09-30 07:15] LABS: BUN/CREATININE RATIO 12.1 (10-20); CALCIUM 8.2 mg/dl (8.5-10.1); CREATININE 1.09 mg/dl (0.60-1.40)
[2017-09-30 07:48] VITALS: BP 155/97; PULSE 74; TEMP 36.4; O2SAT 97
[2017-09-30 08:09] VITALS: BP 130/92
[2017-09-30] MEDS ORDERED: RXC5 PO (08:34)
[2017-09-30] MEDS: ASPIRIN 81 MG ECTAB PO SCH (08:58)
--- NOTE | 2017-09-30 08:58 | Discharge Instructions ---
Discharge Instructions Date of Service Sep 30, 2017. Admission Reason for Admission: Right Knee Failed Medial Retinacular Repair S/P Tk Discharge Discharge Diagnosis / Problem: Right Knee Failed Medial Retinacular Repair Discharge Goals Goal(s): Decrease discomfort, Improve function, Increase independence Activity Recommendations Activity Limitations: per Instructions/Follow-up section Weightbearing Status: Right weightbearing (as tolerated with brace/immobilizer on ) . Instructions / Follow-Up Instructions / Follow-Up Change your dressing on Wednesday. You may remove the reba bandage/dressing. Replace dressing with 4x4 gauze or something similar. You may use medical tape to keep dressing on or you may use an reba bandage. You are weightbearing as tolerated for ambulation. You MUST wear your immobilizer or brace while you are up ambulating. You may remove immobilizer for doing range of motion exercises, then put it back on . You may slowly increase your range of motion as weeks progress. 0-45 degrees the first week, then 0-60 degrees, the second week, 0-90 degrees the third week , then as tolerated. You may elevate the leg to help with swelling. Place a bed pillow lengthwise under your whole leg and not just under the knee. Ice to the knee regularly for the first 72 hours, then after therapy Call the office with any questions or concerns. [phone] Riggins in 2 weeks. Call for an appt. [phone] Current Hospital Diet Patient's current hospital diet: Regular Diet Discharge Diet Recommended Diet: Regular Diet Procedures Procedures Performed: Right Knee patellofemoral realignment, VMO advancement, Medial Retinacular Repair and plication, partial synovectomy, Lateral Release Pending Studies Studies pending at discharge: yes List of pending studies: Joint fluid culture still pending. Currently, no growth to date. Laboratory Results Hemoglobin A1c Test 09/07/17 12:12 Range/Units Estimated Average Glucose 103 mg/dl Hemoglobin A1c 5.2 4.5-5.6 % Lipid Panel Test 09/01/17 09:56 Range/Units Triglycerides Level 111 0-150 mg/dl Cholesterol Level 232 H 0-200 mg/dl HDL Cholesterol 65 mg/dl Cholesterol/HDL Ratio 3.6 LDL Cholesterol, Calculated 145 mg/dl Medical Emergencies . Who to Call and When: Medical Emergencies: If at any time you feel your situation is an emergency, please call 911 immediately. . Non-Emergent Contact Non-Emergency issues call your: Surgeon Call Non-Emergent contact if: temperature is above 101.5, your pain is not controlled, your pain is worsening, wound has increased drainage, wound has increased redness . "Provider Documentation" section prepared by William Craft. . VTE Core Measure Inpt VTE Proph given/why not?: Other Anticoagulation, T.E.D. Stockings, SCD's [place] Drug Monitoring Program Search Results: patient reviewed within database, no issues identified
[2017-09-30] MEDS ORDERED: MULTIVITAMIN TAB PO SCH (09:00)
[2017-09-30] MEDS ORDERED: PANTOprazole SOD 40 MG TAB PO SCH (09:00)
[2017-09-30] MEDS ORDERED: ASPEC81 PO (09:01)
[2017-09-30 09:48] VITALS: BP 130/92; PULSE 74; TEMP 36.4; O2SAT 97
--- NOTE | 2017-09-30 09:52 | Anesthesiology Progress Note ---
Anesthesia Post Op Note Date & Time Sep 30, 2017 at 09:51 Vital Signs Pain Intensity: 4.0 Vital Signs Past 12 Hours Date Time Temp Pulse Resp B/P (MAP) Pulse Ox O2 Delivery O2 Flow Rate FiO2 09/30/17 09:48 36.4 74 18 97 Room Air 09/30/17 08:09 130/92 (105) 09/30/17 07:48 36.4 74 18 155/97 (116) 97 Room Air 09/30/17 07:15 Room Air 09/29/17 23:05 Room Air 09/29/17 23:00 36.7 76 16 133/83 (100) 95 Room Air Notes Mental Status: alert / awake / arousable, participated in evaluation Pt Amnestic to Procedure: Yes Nausea / Vomiting: adequately controlled Pain: adequately controlled Airway Patency, RR, SpO2: stable & adequate BP & HR: stable & adequate Hydration State: stable & adequate Neuraxial Anesthesia: sensory block resolved Anesthetic Complications: no major complications apparent
--- NOTE | 2017-09-30 18:18 | Medical Consult ---
Consultation Date of Consultation: Sep 30, 2017. Attending Physician: Darío Riggins M.D. Reason for Consultation: post-operative medical management History of Present Illness 67yo male with h/o GERD and prior right TKR in January 2017 who underwent the following on 09/29/[address] Riggins - Open patellofemoral realignment with VMO advancement and medial retinacular plication including suture anchors medial patella with lateral release and partial synovectomy of the anterior knee. I am seeing the patient POD #1 and he denies any dyspnea, chest pain, abdominal pain, nausea, or emesis. He has passed flatus but denies having had a stool yet. He anticipates being discharged home today. His only complaint is that of right knee pain. Past Medical/Surgical History PMH: 1. GERD 2. OA 3. lumbar spinal stenosis 4. h/o basal cell skin carcinoma 5. HTN PSH: 1. abdominal hernia repair 2. jaw surgery 3. shoulder surgery 4. inguinal hernia repair 5. right TKR - January 2017 Family History CAD, stroke, h/o liver transplant Social History Smoking Status: Former Smoker Alcohol Use: occasionally Marital Status: Occupation Status: retired Allergies Coded Allergies: BEE STING (Verified Allergy, Severe, ANALPHYLAXIS, 09/29/17) TOOK ALLERGY SHOTS- HAS BEEN STUNG SINCE WITHOUT PROBLEM NO KNOWN DRUG ALLERGIES (Verified Allergy, Unknown, , 09/29/17) Home Medications Reported Home Medications Medications Dose Route/Sig Max Daily Dose Days Date Category Aspirin EC Low Dose (Aspirin) 81 Mg Ectab 81 Mg PO BID 21 09/30/17 Rx Oxycodone HCl 5 Mg Tab 5-10 Mg PO Q4H PRN 09/30/17 Rx Centrum Silver 50+Men (Multiple Vitamins W/ Minerals) 1 Tab Tab 1 Tab PO QAM 09/09/17 Reported Prilosec (Omeprazole) 20 Mg Capcr 20 Mg PO QAM PRN 09/09/17 Reported Review of Systems Constitutional: No fever Respiratory: No cough, No shortness of breath Cardiovascular: No chest pain, No orthopnea Abdomen: No pain, No nausea, No vomiting, No diarrhea Musculoskeletal: + joint pain Neurologic: No paralysis Physical Exam Date Time Temp Pulse Resp B/P (MAP) Pulse Ox O2 Delivery O2 Flow Rate FiO2 09/30/17 09:48 36.4 74 18 97 Room Air 09/30/17 08:09 130/92 (105) 09/30/17 07:48 36.4 74 18 155/97 (116) 97 Room Air 09/30/17 07:15 Room Air 09/29/17 23:05 Room Air 09/29/17 23:00 36.7 76 16 133/83 (100) 95 Room Air 09/29/17 21:45 36.5 79 16 141/89 (106) 93 Room Air 09/29/17 20:10 36.4 87 16 136/84 (101) 95 Nasal Cannula 2.0 09/29/17 19:10 37.2 86 16 141/90 (107) 95 Nasal Cannula 2.0 09/29/17 18:40 36.5 75 16 137/86 (103) 96 Nasal Cannula 2.0 09/29/17 18:10 37.2 83 16 142/86 (104) 94 Nasal Cannula 2.0 09/29/17 18:10 94 Nasal Cannula 2.0 09/29/17 18:10 94 Nasal Cannula 2.0 General Appearance: WD/WN, no apparent distress Head: normocephalic, atraumatic ENT: pharynx normal Neck: no JVD Respiratory/Chest: lungs clear, no respiratory distress, no accessory muscle use Cardiovascular: regular rate, rhythm, no gallop, no murmur, normal peripheral pulses Abdomen/GI: normal bowel sounds, non tender, soft, no organomegaly Back: normal inspection Extremities/Musculoskelatal: no pedal edema (left ankle), + pedal edema (right ankle), + pertinent finding (right knee in large brace, drain in place) Neurologic/Psych: alert, oriented x 3 Laboratory Results Last 24 Hours Test 09/30/17 06:15 White Blood Count 8.27 K/uL Red Blood Count 4.30 M/uL Hemoglobin 13.5 g/dL Hematocrit 39.4 % Mean Corpuscular Volume 91.6 fL Mean Corpuscular Hemoglobin 31.4 pg Mean Corpuscular Hemoglobin Concent 34.3 g/dl RDW Standard Deviation 43.3 fL RDW Coefficient of Variation 13.1 % Platelet Count 203 K/uL Mean Platelet Volume 9.1 fL Sodium Level 138 mmol/L Potassium Level 4.0 mmol/L Chloride Level 104 mmol/L Carbon Dioxide Level 24 mmol/L Anion Gap 10.0 mmol/L Blood Urea Nitrogen 13 mg/dl Creatinine 1.09 mg/dl Est Creatinine Clear Calc Drug Dose 75.1 ml/min Estimated GFR () 80.4 Estimated GFR (Non- 69.4 BUN/Creatinine Ratio 12.1 Random Glucose 116 mg/dl Calcium Level 8.2 mg/dl Assessment & Plan 67yo male with h/o GERD, lumbar spinal stenosis, and right knee OA s/p TKR earlier this year followed by surgery yesterday by Dr. Riggins (see details above). 1. GERD - continue PPI. 2. minimal acute blood loss anemia - will not require any intervention. 3. DVT proph - defer to orthopedics, but agree with aspirin 81mg twice daily. 4. elevated blood pressure - past records suggest a history of HTN, but he was not taking anything for blood pressure prior to this hospital stay. Would recommend follow-up with PCP for this. From medical standpoint he is fit for hospital discharge today. Thank you for this consult. Rob Kruse MD
--- NOTE | 2017-10-01 11:24 | DISCHARGE SUMMARY ---
DISCHARGE DIAGNOSIS: Right knee failed medial retinacular repair, status post total knee arthroplasty. SECONDARY DIAGNOSES: Osteoarthritis, spinal stenosis, gastroesophageal reflux disease, and basal cell carcinoma. CONSULTS: Dr. Rob Kruse. COMPLICATIONS: None. PROCEDURES: Open patellofemoral realignment with VMO advancement and medial retinacular plication including suture anchors and medial patella with lateral release and partial synovectomy, anterior knee by Dr. Riggins on 09/29/2017. BRIEF HISTORY: As dictated in the history and physical. HOSPITAL SUMMARY: The patient was admitted on the above date and had the above-noted surgery performed which he tolerated well. On his first postoperative day, he was remaining stable. Vital signs are stable. He is afebrile. Dr. Riggins was in to see the patient and I had seen him later that morning to setup the possibility of a hinged knee brace and at that time the patient was doing well and was progressing with his PT. Pain was controlled and he had no new complaints. He was otherwise remaining stable and it was felt he could be discharged to home. I arranged for the patient to stop by the office after discharge to have a hinged knee brace placed on his operative knee. He was thusly discharged to home on 09/30/2017. For further review, please see chart. LABORATORY AND X-RAY DATA: As per chart. DISCHARGE INSTRUCTIONS: The patient was discharged to home in satisfactory condition on 09/30/2017. DIET: Regular. ACTIVITY: Weightbearing as tolerated with right lower extremity with brace or immobilizer on for ambulation. DISCHARGE INSTRUCTIONS: Change dressing on Wednesday, may remove the Arslan bandage and dressing, replace dressing with 4 x 4 gauze or something similar. He may use medical tape to keep dressing on or you may use Arslan bandage, weightbearing as tolerated for ambulation. You must wear immobilizer or brace while you up or ambulating. You may remove immobilizer for doing range of motion exercises then put it back on. You may slowly increase range of motion as weeks progressed, 0-45 degrees the first week, 0-60 degrees second week, 0-90 degrees at third week, then as tolerated. Elevate the leg to help with swelling, place a bed pillow lengthwise under your whole leg and not just under the knee. Ice to the knee regularly for the first 72 hours. Call the office with any questions or concerns and follow up with Dr. Riggins in 2 weeks. DISCHARGE MEDICATIONS: Aspirin 81 mg p.o. b.i.d., oxycodone 5-10 mg p.o. q. 4 hours p.r.n.; resume multivitamin 1 tab p.o. q.a.m. and omeprazole 20 mg p.o. q.a.m. p.r.n. Stop taking etodolac. MTDD
== END 2017-09-30 15:59 | disposition home health service (06) | DRG 489 ==
LOC: C.ACU 10:06 → C.3E 14:02 → ENRESERV 17:07
PROVIDERS: ADMIT Orthopaedic Surgery Sports Medicine; ATTEND Orthopaedic Surgery Sports Medicine
PROC: 0QSD0ZZ Reposition Right Patella, Open Approach (ICD-10-PCS; principal; 2017-09-29 12:30)
PROC: 0SBC0ZZ Excision of Right Knee Joint, Open Approach (ICD-10-PCS; principal; 2017-09-29 12:30)
PROC: 0MNN0ZZ Release Right Knee Bursa and Ligament, Open Approach (ICD-10-PCS; principal; 2017-09-29 12:30)
PROC: 0LSQ0ZZ Reposition Right Knee Tendon, Open Approach (ICD-10-PCS; principal; 2017-09-29 12:30)
DX: T84.428A Displacement of other internal orthopedic devices, implants and grafts, initial encounter (principal); T84.84XA Pain due to internal orthopedic prosthetic devices, implants and grafts, initial encounter; Y79.2 Prosthetic and other implants, materials and accessory orthopedic devices associated with adverse incidents; M22.2X1 Patellofemoral disorders, right knee; M65.9 Synovitis and tenosynovitis, unspecified; M25.461 Effusion, right knee; K21.9 Gastro-esophageal reflux disease without esophagitis; M19.90 Unspecified osteoarthritis, unspecified site; E66.9 Obesity, unspecified; Z68.32 Body mass index [BMI] 32.0-32.9, adult; Z87.891 Personal history of nicotine dependence; Z79.1 Long term (current) use of non-steroidal anti-inflammatories (NSAID); Z79.899 Other long term (current) drug therapy; Z91.048 Other nonmedicinal substance allergy status

== ENCOUNTER → 2017-10-26 | Outpatient (CLI) | payer OTHER, MEDICARE ==
[~2017-10-26] MED LIST changes: -ACETAMINOPHEN 500 MG TAB PO SCH; +ASPI-320 PO; -BUPIVACAINE 0.25% 30 ML VIAL ONE; -BUPIVACAINE 0.5 % 5 MG/1 ML PF 10ML VIAL ONE; -CEFAZOLIN 2000MG IV PUSH 10 ML IV SCH; -CeleBREX 200 MG CAP PO SCH; -DEXAMETHASONE 4 MG TAB PO SCH; -ETOD400T PO; -EpINEphrine INJ 1MG/ML AMP 1 MG/ML AMP ONE; -FAMOTIDINE 20 MG TAB PO SCH; -GABAPENTIN 300 MG CAP PO SCH; -LACTATED RINGER'S 1000ML 1,000 ML IV SCH; -LACTATED RINGER'S 1000ML 500 ML IV ONE; -LACTATED RINGER'S 1000ML IV SCH; -METOCLOPRAMIDE HCL 10 MG TAB PO SCH; +RXC5 PO
== END | disposition home or self-care (01) ==
LOC: C.LAB 15:40
PROVIDERS: ATTEND Orthopaedic Surgery Sports Medicine
DX: Z96.651 Presence of right artificial knee joint (principal)

== ENCOUNTER 2018-12-23 03:56 | Observation (INO) ==
[2018-12-23] MEDS ORDERED: GI COCKTAIL ED USE PO ONE (04:43)
[2018-12-23] MEDS ORDERED: LIDOCAINE HCL VISCOUS SOLN 2% 15 ML UDC ONE (04:44)
[2018-12-23] MEDS ORDERED: ALUMINUM/MAGNESIUM SUSP 30 ML UDC ONE (04:44)
[2018-12-23 04:54] LABS: Basophils # (auto) 0.04 K/uL (0-0.2); Basophils % (auto) 0.5 %; Eosinophils # (auto) 0.45 K/uL (0-0.5); Eosinophils % (auto) 5.5 %; Hematocrit (blood only) 44.2 % (42-52); Hemoglobin 15.5 g/dL (14.0-18.0); Immature Granulocytes # (auto) 0.01 K/uL (0.00-0.02); Immature Granulocytes % (auto) 0.1 %; Lymphocytes # (auto) 1.88 K/uL (1.2-3.4); Mean Corpuscular Hgb Conc 35.1 g/dL (32-36); Mean Corpuscular Volume 91.1 fL (80-100); Mean Platelet Volume 9.4 fL (7.4-10.4); Monocytes # (auto) 0.82 K/uL (0.11-0.59); Neutrophils # (auto) 4.97 K/uL (1.4-6.5); Neutrophils % (auto) 60.9 %; Platelet Count 231 K/uL (130-400); RDW Coefficient of Variation 13.2 % (11.5-14.5); Red Blood Count 4.85 M/uL (4.7-6.1); White Blood Count 8.17 K/uL (4.8-10.8)
[2018-12-23 05:11] LABS: Alanine Aminotransferase 20 U/L (12-78); Albumin Level 3.6 gm/dl (3.4-5.0); Aspartate Aminotransferase 17 U/L (15-37); BUN Creatinine Ratio 16.6 (10-20); Blood Urea Nitrogen 19 mg/dl (7-18); Calcium 8.3 mg/dl (8.5-10.1); Carbon Dioxide 24 mmol/L (21-32); Chloride 108 mmol/L (98-107); Creatinine Clr Calc Pharmacy 62.1 ml/min; Est GFR (African American) 74.1; Est GFR (Non-African American) 63.9; Glucose 116 mg/dl (70-99); Potassium 3.9 mmol/L (3.5-5.1); Sodium 140 mmol/L (136-145)
[2018-12-23 05:16] LABS: Alkaline Phosphatase 57 U/L (45-117); Bilirubin,Total 0.7 mg/dl (0.2-1); Globulin 3.6 gm/dl (2.5-4.0); Total Protein 7.2 gm/dl (6.4-8.2); Troponin I < 0.015 ng/ml (0-0.045)
[2018-12-23] MEDS ORDERED: HYDROmorphone INJ 0.5 MG/0.5 ML SYR IV STA ×3 (05:21→08:40)
[2018-12-23] MEDS ORDERED: OPTIRAY 320 125ml IV PRN (05:29)
--- NOTE | 2018-12-23 07:05 | Ultrasound Report ---
ULTRASOUND RIGHT UPPER QUADRANT ABDOMEN CLINICAL HISTORY: Right upper quadrant abdominal pain. COMPARISON STUDY: No priors. TECHNIQUE: Real-time, grayscale, and color flow sonography of the right upper quadrant of the abdomen was performed. Images are reviewed in the transverse and longitudinal planes. FINDINGS: Liver: The liver is normal in size and echotexture. There is no intrahepatic biliary ductal dilatatio n. The main portal vein is patent. Gallbladder: There are numerous shadowing calcified gallstones. The gallbladder is distended, and the gallbladder wall is mildly thickened and edematous measuring up to 4 mm. Trace pericholecystic fluid is seen. A sonographic Blue's sign is reportedly present. The common bile duct measures up to 0.6 cm in diameter. Pancreas: Visualized portions of the pancreatic head and body are normal in appearance. The splenic v ein is patent. Right kidney: Survey images of the right kidney demonstrate cortical atrophy. There is no hydronephro sis. A 4.0 cm exophytic cyst is noted. Ascites: None. IMPRESSION: Cholelithiasis with evidence of acute cholecystitis. Surgical consultation is advised. Electronically signed by: Donta Everett M.D. 12/23/2018 7:04 AM
--- NOTE | 2018-12-23 07:44 | CT Scan Report ---
CT ANGIOGRAM OF THE CHEST COMBO CLINICAL HISTORY: Atypical chest pain. Back pain. COMPARISON STUDY: Chest x-ray dated 12/21/2018. TECHNIQUE: Before and following the IV administration of 119 cc of Optiray 320, CT angiogram of the c hest was performed from the thoracic inlet to the upper abdomen utilizing the dissection protocol. Im ages are reviewed in the axial, sagittal, and coronal planes. 3-D MIPS images are created and assesse d. IV contrast was administered without complication. A dose lowering technique was utilized adherin g to the principles of ALARA. CT DOSE: 1049.48 mGy.cm FINDINGS: Thyroid: Imaged portions of the thyroid gland are normal in size and attenuation. Thoracic aorta: No intramural hematoma is seen on the unenhanced series. The thoracic aorta is normal in caliber and demonstrates standard 3-vessel arch anatomy. No dissection is seen. The arch vessels are widely patent. Pulmonary vasculature: The pulmonary trunk is normal in caliber. There are no central filling defects identified in the pulmonary vessels to suggest pulmonary embolus. Note that this examination was not specifically protocoled to assess for pulmonary emboli. Heart: The heart is normal in size and configuration, and without pericardial effusion. Lungs and pleural spaces: The trachea and central airways are patent. There is mild elevation of the right hemidiaphragm with bibasilar scarring/atelectasis. No airspace consolidation or pleural effusio n is identified. Mediastinum: There is no mediastinal lymphadenopathy. Aurelia: Clear. Axillae: There is no axillary lymphadenopathy. Upper abdomen: There are numerous calcified gallstones. The gallbladder wall is thickened and there i s pericholecystic stranding. A 3.6 cm cyst is noted in the upper pole of the right kidney. A [address] is noted in the right lobe of the liver. There is a small to moderate hiatal hernia. Skeletal structures: No lytic or blastic bony lesions are seen. Degenerative change and mild scoliosi s are noted in the thoracic spine. There is also arthritic change in the shoulders. IMPRESSION: 1. There is no evidence of aneurysm or dissection involving the thoracic aorta. 2. Findings are consistent with acute cholecystitis. Surgical consultation is advised. 3. The lungs are clear. 4. Small to moderate hiatal hernia. 5. Additional findings as above. Electronically signed by: Donta Everett M.D. 12/23/2018 7:42 AM
[2018-12-23] MEDS ORDERED: SODIUM CHLORIDE 0.9% 1000ML 1,000 ML IV SCH (07:45)
--- NOTE | 2018-12-23 08:45 | History & Physical Report ---
Date of Service December 23, 2018 Assessment & Plan (1) Acute calculous cholecystitis: 68 year-old male who presented to emergency department two nights ago with epigastric pain and now last night with chest/RUQ abdominal pain. CTA of chest and abdominal ultrasound showing gallstones with gallbladder wall thickening, pericholecystic fluid consistent with acute cholecystitis. Labs show no leukocytosis, t. bili, lfts, lipase all wnl. Abdomen is soft, tender in RUQ on deep palpation. Plan: Discussed with patient imaging findings consistent with acute cholecystitis and recommend cholecystectomy. Patient informed of procedure and risks including bleeding, infection, injury to surrounding organs, bile duct injury, bile leak, cardiopulmonary complications including blood clots. Also informed patient of recovery time frame and restrictions. Informed consent will be obtained by Dr. Dex figueroa prior to procedure. Plan to admit patient to medical/surgical floor for observation until OR room available. Start IV fluids LR @ 125 mls/hr, IV Rocephin 1 gm every 12 hours , IV Dilaudid prn pain, IV Zofran prn nausea, activity as tolerated, and kept NPO. Discussed patient with Dr. Hahn who is to see patient later this morning. History of Present Illness Primary Care Provider: NO PCP Hector is a pleasant 68 year-old male who presented to emergency department two nights ago with epigastric abdominal pain and was given a GI cocktail in which symptoms improved. He states he was in his normal state of health in which the abdominal pain suddenly started around 11 pm which woke him up. No associated fever, chills, sweats, nausea, or vomiting. States he felt fine until again last night around midnight had severe right upper abdominal and chest pain that radiated straight to his back. No associated nausea or vomiting. Nothing seemed to make the pain better. Pain worse with movement. Never had this type of pain before. Never had history of gallbladder troubles in the past. Denies of any chest pressure, shortness of breath, difficulty breathing, nausea, vomiting, changes in bowel habits, diarrhea, constipation, blood in stools, stools, difficulty urinating, or blood in urine. Emergency room work-up included labs which showed no leukocytosis, t. bili, LFTs, and lipase wnl. Ct angio was obtained which showed gallbladder wall thickening, pericholecystic stranding and multiple gallstones. Abdominal US showed gallstones with gallbladder wall thickening measuring up to 4 mm with pericholecystic fluid and positive sonographic blue's sign. Allergies Allergy/AdvReac Type Severity Reaction Status Date / Time bee venom protein (honey bee) Allergy Severe ANALPHYLAXI Verified 12/23/18 04:37 S Home Medications Home Medications Medication Instructions Recorded Confirmed Type celecoxib 200 mg PO DAILY PRN 10/16/18 12/23/18 History omeprazole 20 mg PO DAILY PRN 10/16/18 12/23/18 History Past Med/Surg History Medical History Chronic pain of right knee Borderline hypertension Cataract Concussion Surgical History Post-operative state H/O repair of right rotator cuff H/O right inguinal hernia repair History of mandibular surgery Total knee replacement status Family History Other Family history non-contributory Social History Feels Safe at Home: Yes Smoking Status: Never smoker Hx Alcohol Use: Yes Alcohol Intake Frequency: 0-2 drinks per day Alcohol Intake Frequency Comment: 1 drink per day Preferred Language: Indonesian Review of Systems Constitutional: as per Subjective / HPI Physical Exam Vital Signs (Past 24 Hours): Last Vital Signs Temp 36.3 C L 12/23/18 04:04 Pulse 56 L 12/23/18 06:31 Resp 16 12/23/18 06:31 BP 152/117 H 12/23/18 06:31 Pulse Ox 97 12/23/18 06:31 Constitutional: WD/WN, vitals as above no acute distress and not ill appearing Neck: trachea midline, no thyromegaly Respiratory: normal respiratory effort, lungs clear to auscultation normal respiratory effort; no respiratory distress, no labored breathing and no retractions Cardiovascular: RRR, no murmur, no edema Gastrointestinal (Abdomen): Inspection/Auscultation: abdomen normal to inspection and normal bowel sounds; abdomen not distended Percussion/Palpation: + abdomen tender (RUQ on deep palpation) and abdomen soft; no guarding and abdomen not rigid Skin: no rashes, warm and dry Psychiatric: A+Ox3, euthymic affect Results & Data Laboratory Results 12/23/18 12/23/18 Range/Units 04:10 04:10 WBC 8.17 (4.8-10.8) K/uL RBC 4.85 (4.7-6.1) M/uL Hgb 15.5 (14.0-18.0) g/dL Hct 44.2 (42-52) % MCV 91.1 (80-100) fL MCH 32.0 (25-34) pg MCHC 35.1 (32-36) g/dL RDW Std Deviation 44.0 (36.4-46.3) fL RDW Coeff of Shahrzad 13.2 (11.5-14.5) % Plt Count 231 (130-400) K/uL MPV 9.4 (7.4-10.4) fL Immature Gran % (Auto) 0.1 % Neut % (Auto) 60.9 % Lymph % (Auto) 23.0 % Flagler % (Auto) 10.0 % Eos % (Auto) 5.5 % Baso % (Auto) 0.5 % Immature Gran # (Auto) 0.01 (0.00-0.02) K/uL Neut # (Auto) 4.97 (1.4-6.5) K/uL Lymph # (Auto) 1.88 (1.2-3.4) K/uL Flagler # (Auto) 0.82 H (0.11-0.59) K/uL Eos # (Auto) 0.45 (0-0.5) K/uL Baso # (Auto) 0.04 (0-0.2) K/uL Sodium 140 (136-145) mmol/L Potassium 3.9 (3.5-5.1) mmol/L Chloride 108 H (98-107) mmol/L Carbon Dioxide 24 (21-32) mmol/L Anion Gap 8.0 (3-11) BUN 19 H (7-18) mg/dl Creatinine 1.16 (0.6-1.4) mg/dl Est Cr Clr Drug Dosing 62.1 ml/min Est GFR ( Amer) 74.1 Est GFR (Non-Af Amer) 63.9 BUN/Creatinine Ratio 16.6 (10-20) Glucose 116 H (70-99) mg/dl Calcium 8.3 L (8.5-10.1) mg/dl Total Bilirubin 0.7 (0.2-1) mg/dl AST 17 (15-37) U/L ALT 20 (12-78) U/L Alkaline Phosphatase 57 (45-117) U/L Troponin I < 0.015 (0-0.045) ng/ml Total Protein 7.2 (6.4-8.2) gm/dl Albumin 3.6 (3.4-5.0) gm/dl Globulin 3.6 (2.5-4.0) gm/dl Albumin/Globulin Ratio 1.0 (0.9-2) Lipase 144 (73-393) U/L Diagnostic Findings CT ANGIOGRAM OF THE CHEST COMBO CLINICAL HISTORY: Atypical chest pain. Back pain. COMPARISON STUDY: Chest x-ray dated 12/21/2018. TECHNIQUE: Before and following the IV administration of 119 cc of Optiray 320, CT angiogram of the chest was performed from the thoracic inlet to the upper abdomen utilizing the dissection protocol. Images are reviewed in the axial, sagittal, and coronal planes. 3-D MIPS images are created and assessed. IV contrast was administered without complication. A dose lowering technique was utilized adhering to the principles of ALARA. CT DOSE: 1049.48 mGy.cm FINDINGS: Thyroid: Imaged portions of the thyroid gland are normal in size and attenuation. Thoracic aorta: No intramural hematoma is seen on the unenhanced series. The thoracic aorta is normal in caliber and demonstrates standard 3-vessel arch anatomy. No dissection is seen. The arch vessels are widely patent. Pulmonary vasculature: The pulmonary trunk is normal in caliber. There are no central filling defects identified in the pulmonary vessels to suggest pulmonary embolus. Note that this examination was not specifically protocoled to assess for pulmonary emboli. Heart: The heart is normal in size and configuration, and without pericardial effusion. Lungs and pleural spaces: The trachea and central airways are patent. There is mild elevation of the right hemidiaphragm with bibasilar scarring/atelectasis. No airspace consolidation or pleural effusion is identified. Mediastinum: There is no mediastinal lymphadenopathy. Aurelia: Clear. Axillae: There is no axillary lymphadenopathy. Upper abdomen: There are numerous calcified gallstones. The gallbladder wall is thickened and there is pericholecystic stranding. A 3.6 cm cyst is noted in the upper pole of the right kidney. A 10 mm cyst is noted in the right lobe of the liver. There is a small to moderate hiatal hernia. Skeletal structures: No lytic or blastic bony lesions are seen. Degenerative change and mild scoliosis are noted in the thoracic spine. There is also arthritic change in the shoulders. IMPRESSION: 1. There is no evidence of aneurysm or dissection involving the thoracic aorta. 2. Findings are consistent with acute cholecystitis. Surgical consultation is advised. 3. The lungs are clear. 4. Small to moderate hiatal hernia. 5. Additional findings as above. ULTRASOUND RIGHT UPPER QUADRANT ABDOMEN CLINICAL HISTORY: Right upper quadrant abdominal pain. COMPARISON STUDY: No priors. TECHNIQUE: Real-time, grayscale, and color flow sonography of the right upper q uadrant of the abdomen was performed. Images are reviewed in the transverse and longitudinal planes. FINDINGS: Liver: The liver is normal in size and echotexture. There is no intrahepatic biliary ductal dilatation. The main portal vein is patent. Gallbladder: There are numerous shadowing calcified gallstones. The gallbladder is distended, and the gallbladder wall is mildly thickened and edematous measuring up to 4 mm. Trace pericholecystic fluid is seen. A sonographic Blue's sign is reportedly present. The common bile duct measures up to 0.6 cm in diameter. Pancreas: Visualized portions of the pancreatic head and body are normal in appearance. The splenic vein is patent. Right kidney: Survey images of the right kidney demonstrate cortical atrophy. There is no hydronephrosis. A 4.0 cm exophytic cyst is noted. Ascites: None. IMPRESSION: Cholelithiasis with evidence of acute cholecystitis. Surgical consultation is advised. Code Status & VTE Plan VTE Prophylaxis Plan VTE Prophylaxis will be ordered: Yes
[2018-12-23] MEDS ORDERED: HYDROmorphone INJ 1 MG/ML SYRINGE IV PRN (09:26)
[2018-12-23] MEDS ORDERED: ONDANSETRON INJ 2 MG/ML 2 ML VIAL IV PRN ×2 (09:26→10:37)
[2018-12-23] MEDS ORDERED: HYDROmorphone INJ 0.5 MG/0.5 ML SYR IV PRN ×2 (09:26)
[2018-12-23] MEDS: LACTATED RINGER'S 1,000 ML IV SCH ×2 (09:42→15:27)
[2018-12-23] MEDS ORDERED: cefTRIAXone SODIUM 2,000 MG in DEXTROSE 5% 50 ML IV SCH (10:00)
--- NOTE | 2018-12-23 10:31 | History & Physical Bridge Note ---
Date of Service December 23, 2018 History & Physical Bridge Note I have examined the patient, reviewed the History & Physical and in the interval since the performance of the History & Physical I have noted the following changes of clinical significance: no changes noted
--- NOTE | 2018-12-23 10:33 | Anesthesiology Consultation ---
Date of Service December 23, 2018 Assessment & Plan (1) Encounter for pre-operative examination: Chart Review Chart Review: Acceptable Risk for Surgery NPO Date Last Intake of Fluids: 12/23/18 Time Last Intake of Fluids: 01:00 Last Intake of Fluids Comment: sip of water Date Last Intake of Solids: 12/22/18 Time Last Intake of Solids: 18:00 History Surgery Operation Date: 12/23/18 07:00 Proposed Procedures p Laparoscopic Cholecystectomy, No Cholangiogram - Manju Hahn MD Height/Weight Height: 5 ft 10 in Weight: 94.1 kg Allergies Allergy/AdvReac Type Severity Reaction Status Date / Time bee venom protein (honey bee) Allergy Severe ANALPHYLAXI Verified 12/23/18 04:37 S Medications Home Medications Medication Instructions Recorded Confirmed Last Taken celecoxib 200 mg PO DAILY PRN 10/16/18 12/23/18 Unknown omeprazole 20 mg PO DAILY PRN 10/16/18 12/23/18 12/22/18 Active Medications Generic Name Dose Route Start Last Admin Trade Name Freq PRN Reason Stop Dose Admin Lactated Ringer's 1,000 mls @ 125 mls/hr 12/23/18 09:26 12/23/18 09:42 Lr IV 01/22/19 09:25 125 mls/hr .Q8H JINNY Administration Past Medical History Medical History Chronic pain of right knee Borderline hypertension Cataract Concussion Past Family History Family History Other Family history non-contributory Past Surgical History Surgical History Post-operative state H/O repair of right rotator cuff H/O right inguinal hernia repair History of mandibular surgery Total knee replacement status Social History Smoking Status: Former smoker Do You Dip or Chew Tobacco: No Hx Alcohol Use: Yes Alcohol type: beer, wine and hard liquor alcohol intake frequency: a few times a week Hx Substance Use: No Physical Exam Vital Signs Last Vital Signs Temp 36.9 C 12/23/18 09:26 Pulse 64 12/23/18 09:26 Resp 18 12/23/18 09:26 BP 171/107 H 12/23/18 09:26 Pulse Ox 98 02/22/19 09:26 Testing Electrocardiogram Date: 12/23/18 Findings: + SB @ (56) and + RBBB (incomplete) Chest X-Ray Date: 12/23/18 Findings: + NAD Laboratory Results 12/23/18 04:10 12/23/18 04:10
[2018-12-23] MEDS ORDERED: KETOROLAC 30 MG/ML VIAL IV PRN (10:37)
[2018-12-23] MEDS ORDERED: LABETALOL HCL IV 5 MG/ML 20ML IV PRN (10:37)
[2018-12-23] MEDS ORDERED: ATROPINE SULFATE 0.1 MG/ML 10ML SYR IV PRN (10:37)
[2018-12-23] MEDS ORDERED: CEFAZOLIN 2,000 MG/15 ML IV PUSH IV ONE (10:40)
[2018-12-23] MEDS ORDERED: ROCURONIUM BROMIDE 10 MG/ML 5 ML VIAL ONE (11:09)
[2018-12-23] MEDS ORDERED: MIDAZOLAM HCL 1 MG/ML 2ML VIAL ONE (11:09)
[2018-12-23] MEDS ORDERED: fentaNYL citrate 100 MCG/2 ML VIAL ONE ×2 (11:09→12:24)
[2018-12-23] MEDS ORDERED: PROPOFOL IV EMULSION 10 MG/ML 20 ML VIAL IV ONE (11:09)
[2018-12-23] MEDS ORDERED: LIDOCAINE HCL 2% 2 ML VIAL/AMP(20MG/ML) INFIL ONE (11:09)
[2018-12-23] MEDS ORDERED: LIDOCAINE HCL 1% 20 ML VIAL ONE (11:40)
[2018-12-23] MEDS ORDERED: BUPIVACAINE 0.5 % 5 MG/1 ML MPF 30ML VIAL ONE (11:40)
[2018-12-23] MEDS ORDERED: BACITRACIN OINT 15 GM TUBE ONE (11:40)
[2018-12-23] MEDS ORDERED: ONDANSETRON INJ 2 MG/ML 2 ML VIAL ONE (13:05)
[2018-12-23] MEDS ORDERED: NEOSTIGMINE METHYLSULFATE 5 MG/5 ML SYR ONE (13:10)
[2018-12-23] MEDS ORDERED: GLYCOPYRROLATE 0.2 MG/ML VIAL ONE (13:10)
--- NOTE | 2018-12-23 13:27 | Post Operative Brief Note ---
Immediate Post Op Note v1 Date of Surgery December 23, 2018 Pre & Post Diagnosis Operation Date: 12/23/18 07:00 Pre-Op Diagnosis: Acute calculous cholecystitis Post-Op Diagnosis: Acute calculous cholecystitis Procedure Operation Date: 12/23/18 07:00 Actual Procedures p Laparoscopic Cholecystectomy - Manju Hahn MD Surgeon Manju Hahn MD Head Bone Grinder JOSE Polanco Estimated Blood Loss 20 Findings Consistent with Post-Op Diagnosis Fluids 800ml Specimens gallbladder Anesthesia Type General Complications none Disposition Accompanied Patient To Recovery: Yes Disposition: Recovery Room Overlapping Procedure I was immediately available: during the entire case.
[2018-12-23] MEDS ORDERED: OXYCODONE/ACETAMINOPHEN 5mg/325mg TAB PO PRN (13:32)
[2018-12-23] MEDS: HYDROmorphone INJ 1 MG/ML SYRINGE IV PRN ×2 (14:25→14:32)
--- NOTE | 2018-12-23 14:32 | Anesthesiology Progress Note ---
Date of Service December 23, 2018 Anesthesia Post Procedure Vital Signs Vital Signs: Temp Pulse Pulse Resp BP BP BP 12/23/18 14:25 56 L 19 125/80 12/23/18 14:15 58 L 19 144/80 H 12/23/18 14:05 59 L 18 133/79 12/23/18 13:55 60 18 132/75 12/23/18 13:47 36.9 C 61 18 146/84 H 12/23/18 11:03 37.1 C 58 L 18 169/104 H 12/23/18 10:00 174/95 H 12/23/18 09:26 36.9 C 64 18 176/103 H 171/107 H 12/23/18 08:51 65 18 157/103 H 12/23/18 07:30 57 L 18 155/94 H 12/23/18 06:31 56 L 16 152/117 H 12/23/18 06:00 56 L 18 159/96 H 12/23/18 05:30 63 22 173/101 H 12/23/18 04:04 36.3 C L 62 16 192/106 H Pulse Ox 12/23/18 14:25 95 12/23/18 14:15 95 12/23/18 14:05 95 12/23/18 13:55 99 12/23/18 13:47 99 12/23/18 11:03 98 12/23/18 10:00 12/23/18 09:26 98 12/23/18 08:51 97 12/23/18 07:30 96 12/23/18 06:31 97 12/23/18 06:00 96 12/23/18 05:30 99 12/23/18 04:04 99 Pain Intensity Chest: Pain Intensity: 8 Abdomen: Pain Intensity: 4 Notes Mental Status: alert / awake / arousable Patient Amnestic to Procedure: Yes Nausea / Vomiting: adequately controlled Pain: adequately controlled Airway Patency, RR, SpO2: stable & adequate BP & HR: stable & adequate Hydration State: stable & adequate Anesthetic Complications: no major complications apparent
[2018-12-23 14:44] LABS: Partial Thromboplastin Ratio 0.8; Partial Thromboplastin Time 22.6 Seconds (21.0-31.0); Prothrombin Time 10.1 Seconds (9.0-12.0)
[2018-12-23] MEDS ORDERED: PANTOprazole 40 MG TAB PO PRN (15:12)
[2018-12-23] MEDS ORDERED: METOPROLOL TARTRATE 25 MG TAB PO PRN (15:12)
[2018-12-23] MEDS ORDERED: CeleBREX 200 MG CAP PO PRN (15:12)
[2018-12-23] MEDS ORDERED: CEFAZOLIN 2000MG 2,000 MG/15 ML SYR IV SCH (20:00)
--- NOTE | 2018-12-23 20:18 | Emergency Department Note ---
Entered by Janak Chandra acting as a scribe for History of Present Illness General Chief complaint: Cardiac Assessment Stated complaint: CHEST DISCOMFORT Time Seen by Provider: 12/23/18 04:09 Source: patient History of Present Illness Provider complaint: Abdominal pain Onset (ago): day(s) 2 Location: abdomen Radiation: back and other (Chest) Severity: similar to prior episodes Pain Consistency: + intermittent Maximum Pain Intensity: 10 Relieved By: + medication Associated symptoms: + diaphoresis and + nausea/vomiting (No vomiting) The patient is a 68 year old male who presents to the Emergency Room with complaints of intermittent epigastric pain that started about 2 hours ago. He notes that the pain radiates to his back and up to his chest. He was here 2 days ago for the same symptoms but tonight he said it is worse and seems a bit different than 2 days ago. Last time he was here he had two negative Troponins and his symptoms were completely relieved with a GI cocktail. From then until now, he did not experience any pain, even when he shoveled heavy snow. When he was discharged he was encouraged to take his omeprazole and he has been taking it accordingly. Tonight he had fish and fried cabbage for dinner. He also drank a few cups of coffee this morning and had 1.5 beers tonight. Home Medications Home Medications Medication Instructions Recorded Confirmed Type celecoxib 200 mg PO DAILY PRN 10/16/18 12/23/18 History omeprazole 20 mg PO DAILY PRN 10/16/18 12/23/18 History oxycodone-acetaminophen [Percocet] 1 tab PO Q4H PRN #18 tab 12/23/18 Rx Allergies Allergy/AdvReac Type Severity Reaction Status Date / Time bee venom protein (honey bee) Allergy Severe ANALPHYLAXI Verified 12/23/18 04:37 S Past Med/Surg History Medical History Chronic pain of right knee Borderline hypertension Cataract Concussion Surgical History Post-operative state H/O repair of right rotator cuff H/O right inguinal hernia repair History of mandibular surgery Total knee replacement status Family History Other Family history non-contributory Social History Current Living Situation: Spouse Other Information That Helps Us Care for You: No Feels Safe at Home: Yes Safety Concerns: Feels Safe At This Time Smoking Status: Former smoker Do You Dip or Chew Tobacco: No Hx Alcohol Use: Yes Alcohol type: beer, wine and hard liquor Alcohol Intake Frequency: a few times a week Alcohol Intake Frequency Comment: 1 drink per day Hx Substance Use: No Beliefs That Will Affect Care: None Preferred Language: Sammarinese Communication Ability: Effective Review of Systems See HPI for pertinent positives & negatives. and A total of 10 systems reviewed and were otherwise negative Physical Exam Vital Signs Vital Signs - 24 hr 12/23/18 04:04 12/23/18 05:30 12/23/18 06:00 Temperature 36.3 C L Temperature Source Oral Sepsis Recent Fever Within 48 Hours No Sepsis New/Unexplained Change in Mental Status No Sepsis Action Taken by Nursing No Action Required Pulse Rate 62 Pulse Rate [Apical] 63 56 L Pulse Rate [Right Finger] Pulse Rhythm [Apical] Pulse Strength [Apical] Respiratory Rate 16 22 18 Respiratory Effort / Characteristics Non-Labored Spontaneous Non-Labored Spontaneous Respiratory Depth Normal Normal Respiratory Pattern Regular Blood Pressure 192/106 H Blood Pressure [Left Arm] Blood Pressure [Right Arm] 173/101 H 159/96 H Blood Pressure Mean 134 Blood Pressure Mean [Left Arm] Blood Pressure Mean [Right Arm] 125 117 Blood Pressure Position [Left Arm] Blood Pressure Position [Right Arm] Pulse Oximetry 99 99 96 Oxygen Delivery Method Room Air Room Air Oxygen Flow Rate 12/23/18 06:31 12/23/18 07:30 12/23/18 08:51 Temperature Temperature Source Sepsis Recent Fever Within 48 Hours Sepsis New/Unexplained Change in Mental Status Sepsis Action Taken by Nursing Pulse Rate Pulse Rate [Apical] 56 L 57 L 65 Pulse Rate [Right Finger] Pulse Rhythm [Apical] Pulse Strength [Apical] Respiratory Rate 16 18 18 Respiratory Effort / Characteristics Non-Labored Spontaneous Non-Labored Spontaneous Respiratory Depth Normal Normal Respiratory Pattern Blood Pressure Blood Pressure [Left Arm] Blood Pressure [Right Arm] 152/117 H 155/94 H 157/103 H Blood Pressure Mean Blood Pressure Mean [Left Arm] Blood Pressure Mean [Right Arm] 128 114 121 Blood Pressure Position [Left Arm] Blood Pressure Position [Right Arm] Sitting Lying Pulse Oximetry 97 96 97 Oxygen Delivery Method Room Air Room Air Oxygen Flow Rate 12/23/18 09:26 12/23/18 10:00 12/23/18 11:03 Temperature 36.9 C 37.1 C Temperature Source Oral Oral Sepsis Recent Fever Within 48 Hours Sepsis New/Unexplained Change in Mental Status Sepsis Action Taken by Nursing Pulse Rate Pulse Rate [Apical] 64 58 L Pulse Rate [Right Finger] Pulse Rhythm [Apical] Regular Pulse Strength [Apical] Normal Respiratory Rate 18 18 Respiratory Effort / Characteristics Non-Labored Respiratory Depth Normal Respiratory Pattern Regular Blood Pressure Blood Pressure [Left Arm] 176/103 H 174/95 H 169/104 H Blood Pressure [Right Arm] 171/107 H Blood Pressure Mean Blood Pressure Mean [Left Arm] 127 121 125 Blood Pressure Mean [Right Arm] 128 Blood Pressure Position [Left Arm] Sitting Lying Blood Pressure Position [Right Arm] Sitting Sitting Pulse Oximetry 98 98 Oxygen Delivery Method Room Air Room Air Oxygen Flow Rate 12/23/18 13:47 12/23/18 13:55 12/23/18 14:05 Temperature 36.9 C Temperature Source Temporal Artery Scan Sepsis Recent Fever Within 48 Hours Sepsis New/Unexplained Change in Mental Status Sepsis Action Taken by Nursing Pulse Rate Pulse Rate [Apical] 61 60 59 L Pulse Rate [Right Finger] Pulse Rhythm [Apical] Regular Regular Regular Pulse Strength [Apical] Respiratory Rate 18 18 18 Respiratory Effort / Characteristics Non-Labored Spontaneous Non-Labored Spontaneous Non-Labored Spontaneous Respiratory Depth Normal Normal Normal Respiratory Pattern Regular Regular Regular Blood Pressure Blood Pressure [Left Arm] Blood Pressure [Right Arm] 146/84 H 132/75 133/79 Blood Pressure Mean Blood Pressure Mean [Left Arm] Blood Pressure Mean [Right Arm] 104 94 97 Blood Pressure Position [Left Arm] Blood Pressure Position [Right Arm] Semi-fowlers Semi-fowlers Semi-fowlers Pulse Oximetry 99 99 95 Oxygen Delivery Method Oxymask Oxymask Room Air Oxygen Flow Rate 10 10 12/23/18 14:15 12/23/18 14:25 12/23/18 14:35 Temperature 36.6 C Temperature Source Temporal Artery Scan Sepsis Recent Fever Within 48 Hours Sepsis New/Unexplained Change in Mental Status Sepsis Action Taken by Nursing Pulse Rate Pulse Rate [Apical] 58 L 56 L 73 Pulse Rate [Right Finger] Pulse Rhythm [Apical] Regular Regular Regular Pulse Strength [Apical] Respiratory Rate 19 19 16 Respiratory Effort / Characteristics Non-Labored Spontaneous Non-Labored Spontaneous Non-Labored Spontaneous Respiratory Depth Normal Normal Normal Respiratory Pattern Regular Regular Regular Blood Pressure Blood Pressure [Left Arm] Blood Pressure [Right Arm] 144/80 H 125/80 134/80 Blood Pressure Mean Blood Pressure Mean [Left Arm] Blood Pressure Mean [Right Arm] 101 95 98 Blood Pressure Position [Left Arm] Blood Pressure Position [Right Arm] Semi-fowlers Semi-fowlers Semi-fowlers Pulse Oximetry 95 95 93 Oxygen Delivery Method Room Air Room Air Room Air Oxygen Flow Rate 12/23/18 14:45 12/23/18 15:00 12/23/18 15:23 Temperature 37.1 C 36.4 C L Temperature Source Oral Axillary Sepsis Recent Fever Within 48 Hours Sepsis New/Unexplained Change in Mental Status Sepsis Action Taken by Nursing Pulse Rate Pulse Rate [Apical] 62 Pulse Rate [Right Finger] 70 70 Pulse Rhythm [Apical] Regular Pulse Strength [Apical] Respiratory Rate 16 16 18 Respiratory Effort / Characteristics Non-Labored Spontaneous Non-Labored Spontaneous Respiratory Depth Normal Normal Respiratory Pattern Regular Regular Blood Pressure Blood Pressure [Left Arm] Blood Pressure [Right Arm] 126/78 136/81 138/88 Blood Pressure Mean Blood Pressure Mean [Left Arm] Blood Pressure Mean [Right Arm] 94 99 104 Blood Pressure Position [Left Arm] Blood Pressure Position [Right Arm] Semi-fowlers Lying Sitting Pulse Oximetry 92 91 92 Oxygen Delivery Method Room Air Room Air Room Air Oxygen Flow Rate 12/23/18 16:10 12/23/18 17:01 12/23/18 19:39 Temperature 37.1 C Temperature Source Oral Sepsis Recent Fever Within 48 Hours Sepsis New/Unexplained Change in Mental Status Sepsis Action Taken by Nursing Pulse Rate Pulse Rate [Apical] Pulse Rate [Right Finger] 71 82 75 Pulse Rhythm [Apical] Pulse Strength [Apical] Respiratory Rate 16 16 18 Respiratory Effort / Characteristics Respiratory Depth Respiratory Pattern Blood Pressure Blood Pressure [Left Arm] Blood Pressure [Right Arm] 137/72 130/79 133/82 Blood Pressure Mean Blood Pressure Mean [Left Arm] Blood Pressure Mean [Right Arm] 93 96 99 Blood Pressure Position [Left Arm] Blood Pressure Position [Right Arm] Sitting Lying Sitting Pulse Oximetry 95 95 94 Oxygen Delivery Method Room Air Room Air Room Air Oxygen Flow Rate HEENT: Head - normocephalic and atraumatic Pupils are equal, round, and reactive to light. Extraocular eye muscles are intact, and sclera are anicteric. Nose - moist nasal mucosa without discharge. Mouth - moist buccal mucosa. Oropharynx is nonerythematous and there is no tonsillar exudate or edema noted. Neck: Supple; no JVD, nuchal rigidity, cervical lymphadenopathy. Heart: Regular rate and rhythm. There is a normal S1 and S2 with no murmurs, clicks, or gallops appreciated. Lungs: Clear to auscultation bilaterally with no wheezes, rales, or rhonchi. Abdomen: Soft, completely nontender, nondistended, with good bowel sounds. There are no palpable pulsatile masses or hepatosplenomegaly. There is no guarding, rigidity, or rebound noted. Extremities: No evidence of cyanosis, clubbing, or edema. There are easily palpable peripheral pulses. Skin: warm and dry with good turgor and no rashes. Course 0439: Past medical records reviewed. The patient was evaluated in room B12B, and a complete history and physical examination were performed. A twelve-lead EKG was obtained. 0443: I ordered a GI cocktail. 0515: I reevaluated the patient and he states he has no relief from the GI cocktail and his pain is worse much different than it was 2 days ago. 0516: I ordered Ranitidine IV 0521: I ordered Dilaudid 0.5mg IV. The patient will go for CT scan of the chest to rule out aortic dissection. 0551: I updated the patient on his CT results. He reports his pain has come down from a 10 to a 4. I repeated the abdominal exam and now he has minimal discomfort in the RUQ on palpation so he is going to go for an ultrasound of the gallbladder. 0708: I updated the patient on his ultrasound results and informed him of the plan. 0715: I spoke to Elmira Hudson [facility] Michael FLORENCE about the patient's case and she is going to accept him for further treatment. Consultations Consultation #1: I spoke to Elmira Guthrie [facility] Michael FLORENCE about the patient's case and she is going to accept him for further treatment. Time: 07:15 Administered Medications Lactated Ringer's (Lr) 1,000 mls @ 80 mls/hr IV .[id number] JINNY Stop: 01/22/19 09:25 Last Admin: 12/23/18 15:27 Dose: 80 mls/hr Infusion: 12/23/18 15:27 Dose: 125 mls/hr Admin: 12/23/18 09:42 Dose: 125 mls/hr Discontinued Medications Al Hydrox/Mg Hydrox/Simethicone () 1 dose PO ONE ONE Stop: 12/23/18 04:44 Last Admin: 12/23/18 04:48 Dose: Not Given Al Hydrox/Mg Hydrox/Simethicone (Maalox) Confirm Administered Dose 30 ml .ROUTE .STK-MED ONE Stop: 12/23/18 04:45 Last Admin: 12/23/18 04:47 Dose: 30 ml Bacitracin (Bacitracin) Confirm Administered Dose 45 appln .ROUTE .STK-MED ONE Stop: 12/23/18 11:41 Last Admin: 12/23/18 13:25 Dose: 45 appln Bupivacaine HCl (Marcaine 0.5% Mpf) Confirm Administered Dose 30 ml .ROUTE .STK- MED ONE Stop: 12/23/18 11:41 Last Admin: 12/23/18 13:26 Dose: 20 ml Cefazolin Sodium (Ancef 2000mg) Confirm Administered Dose 2,000 mg IV .STK-MED ONE Stop: 12/23/18 10:41 Last Admin: 12/23/18 11:48 Dose: 2,000 mg Hydromorphone HCl (Dilaudid) 0.5 mg IV NOW STA Stop: 12/23/18 05:22 Last Admin: 12/23/18 05:30 Dose: 0.5 mg Hydromorphone HCl (Dilaudid) 0.5 mg IV NOW STA Stop: 12/23/18 06:43 Last Admin: 12/23/18 06:45 Dose: 0.5 mg Hydromorphone HCl (Dilaudid) 0.5 mg IV NOW STA Stop: 12/23/18 08:41 Last Admin: 12/23/18 08:52 Dose: 0.5 mg Hydromorphone HCl (Dilaudid) 0.25 mg IV Q5M PRN PRN Reason: PACU Use Only-Pain Stop: 12/23/18 15:37 Last Admin: 12/23/18 14:32 Dose: 0.25 mg Admin: 12/23/18 14:25 Dose: 0.25 mg Ranitidine HCl 50 mg/ Dextrose 102 mls @ 200 mls/hr IV NOW STA Stop: 12/23/18 05:46 Last Infusion: 12/23/18 06:14 Dose: 0 mls/hr Admin: 12/23/18 05:46 Dose: 200 mls/hr Sodium Chloride (Nss 1000ml) 1,000 mls @ 125 mls/hr IV .Q8H JINNY Stop: 01/22/19 07:44 Last Infusion: 12/23/18 10:13 Dose: 0 mls/hr Admin: 12/23/18 08:10 Dose: 125 mls/hr Cefazolin Sodium (Ancef 2000mg) 2,000 mg in 15 mls @ 3.75 mls/min IV Q8H JINNY; Protocol Stop: 12/23/18 20:03 Last Admin: 12/23/18 19:41 Dose: 3.75 mls/min Ioversol (Optiray 320 125ml) 119 ml IV ONCE PRN PRN Reason: Interaction Checking Stop: 12/27/18 05:28 Last Admin: 12/23/18 05:29 Dose: 119 ml Lidocaine HCl (Viscous Lidocaine 2%) Confirm Administered Dose 15 ml .ROUTE .STK -MED ONE Stop: 12/23/18 04:45 Last Admin: 12/23/18 04:47 Dose: 10 ml Lidocaine HCl (Xylocaine 1% (Local)) Confirm Administered Dose 20 ml .ROUTE .STK -MED ONE Stop: 12/23/18 11:41 Last Admin: 12/23/18 13:27 Dose: 20 ml Medical Decision Making Differential Diagnosis The patient is a 68 year old male who presents to the Emergency Room with complaints of intermittent epigastric pain that started about 2 days ago. Differential diagnosis includes aortic dissection, GERD, cardiac ischemia, and costochondritis, amongst others. Medical Records Attestation: I reviewed the patient's medical records. Home Medications Current Medication List: was personally reviewed by me Laboratory Data Attestation: I reviewed the patient's lab results. Result diagrams: 12/23/18 04:10 12/23/18 04:10 Lab Results 12/23/18 12/23/18 12/23/18 Range/Units 04:10 04:10 14:12 WBC 8.17 (4.8-10.8) K/uL RBC 4.85 (4.7-6.1) M/uL Hgb 15.5 (14.0-18.0) g/dL Hct 44.2 (42-52) % MCV 91.1 (80-100) fL MCH 32.0 (25-34) pg MCHC 35.1 (32-36) g/dL RDW Std Deviation 44.0 (36.4-46.3) fL RDW Coeff of Shahrzad 13.2 (11.5-14.5) % Plt Count 231 (130-400) K/uL MPV 9.4 (7.4-10.4) fL Immature Gran % (Auto) 0.1 % Neut % (Auto) 60.9 % Lymph % (Auto) 23.0 % [place] % (Auto) 10.0 % Eos % (Auto) 5.5 % Baso % (Auto) 0.5 % Immature Gran # (Auto) 0.01 (0.00-0.02) K/uL Neut # (Auto) 4.97 (1.4-6.5) K/uL Lymph # (Auto) 1.88 (1.2-3.4) K/uL [place] # (Auto) 0.82 H (0.11-0.59) K/uL Eos # (Auto) 0.45 (0-0.5) K/uL Baso # (Auto) 0.04 (0-0.2) K/uL PT 10.1 (9.0-12.0) Seconds INR 1.0 (0.9-1.1) APTT 22.6 (21.0-31.0) Seconds PTT Ratio 0.8 Sodium 140 (136-145) mmol/L Potassium 3.9 (3.5-5.1) mmol/L Chloride 108 H (98-107) mmol/L Carbon Dioxide 24 (21-32) mmol/L Anion Gap 8.0 (3-11) BUN 19 H (7-18) mg/dl Creatinine 1.16 (0.6-1.4) mg/dl Est Cr Clr Drug Dosing 62.1 ml/min Est GFR ( Amer) 74.1 Est GFR (Non-Af Amer) 63.9 BUN/Creatinine Ratio 16.6 (10-20) Glucose 116 H (70-99) mg/dl Calcium 8.3 L (8.5-10.1) mg/dl Total Bilirubin 0.7 (0.2-1) mg/dl AST 17 (15-37) U/L ALT 20 (12-78) U/L Alkaline Phosphatase 57 (45-117) U/L Troponin I < 0.015 (0-0.045) ng/ml Total Protein 7.2 (6.4-8.2) gm/dl Albumin 3.6 (3.4-5.0) gm/dl Globulin 3.6 (2.5-4.0) gm/dl Albumin/Globulin Ratio 1.0 (0.9-2) Lipase 144 (73-393) U/L Imaging Data Radiologist's Impression: Radiology results as stated below per my review and the radiologist's interpretation: CTA CHEST: COMPARISON: Concurrent chest x-ray IMPRESSION: Tortuous elongated thoracic aorta without aneurysmal dilatation, dissection, or pericardial effusion. No acute pulmonary embolism. Mild central bronchial wall thickening and borderline central bronchiectasis with subsegmental scarring/atelectasis. No focal consolidation, pleural effusion, or pneumothorax. Cholelithiasis without biliary ductal dilatation. Mild gallbladder wall thickening or pericholecystic inflammation may be present. Correlate with right upper quadrant tenderness to palpation and suspicion of cholecystitis. If indicated, right upper quadrant ultrasound could further assess. Small sliding hiatus hernia. INCIDENTAL FINDINGS: Right upper pole renal cyst. Small nonspecific low-density right hepatic lobe lesion. Spondylosis and scoliosis. Radiologist: Antolin Parsons M.D. Study ready at 05:32 and initial results transmitted at 05:45 ULTRASOUND RIGHT UPPER QUADRANT ABDOMEN CLINICAL HISTORY: Right upper quadrant abdominal pain. COMPARISON STUDY: No priors. TECHNIQUE: Real-time, grayscale, and color flow sonography of the right upper quadrant of the abdomen was performed. Images are reviewed in the transverse and longitudinal planes. FINDINGS: Liver: The liver is normal in size and echotexture. There is no intrahepatic biliary ductal dilatation. The main portal vein is patent. Gallbladder: There are numerous shadowing calcified gallstones. The gallbladder is distended, and the gallbladder wall is mildly thickened and edematous measuring up to 4 mm. Trace pericholecystic fluid is seen. A sonographic Blue' s sign is reportedly present. The common bile duct measures up to 0.6 cm in diameter. Pancreas: Visualized portions of the pancreatic head and body are normal in appearance. The splenic vein is patent. Right kidney: Survey images of the right kidney demonstrate cortical atrophy. There is no hydronephrosis. A 4.0 cm exophytic cyst is noted. Ascites: None. IMPRESSION: Cholelithiasis with evidence of acute cholecystitis. Surgical consultation is advised. Electronically signed by: Donta Everett M.D. 12/23/2018 7:04 AM ECG Data Attestation: I personally reviewed and interpreted this ECG as follows: Indication: abdominal pain Rate (beats per minute): 56 Rhythm: sinus bradycardia Findings: no PAC, no PVC and no acute ischemic change Blood Pressure Blood Pressure Findings: Elevated blood pressure Blood Pressure Disposition: elevated BP felt to be situational MDM Narrative The patient is a 68 year old male who presents to the Emergency Room with complaints of intermittent epigastric pain that started about 2 days ago. The patient awoke from sleep again tonight with very severe substernal chest discomfort and epigastric pain. This was not relieved this time by a GI cocktail. In fact his symptoms seem to get worse. CT scan of the chest showed findings concerning for possible cholecystitis. They recommended a follow-up right upper quadrant ultrasound. This was performed and confirmed cholelithiasis with acute cholecystitis. The patient's pain was fairly well controlled with IV analgesia. He was placed on normal saline drip and kept n.p.o. I discussed the case with the surgical PA. They will evaluate the patient for further care. Impression & Plan Acute cholecystitis Discharge Plan Visit Data *Final* Discharge Date/Time: 12/23/18 09:03 Chief Complaint: Cardiac Assessment Stated Complaint: CHEST DISCOMFORT ED Provider: Vani Menendez Discharge Problem: Acute cholecystitis Patient Disposition: Admitted As Inpatient Discharge Instructions Interventions: ED Discharge Assessment Last Done: 12/23/18 09:03 The scribe's documentation has been prepared under my direction and personally reviewed by me in its entirety. I confirm that the note above accurately reflects all work, treatment, procedures, and medical decision making performed by me.
[2018-12-23] MEDS ORDERED: METOPROLOL TARTRATE 25 MG TAB PO SCH (21:00)
--- NOTE | 2018-12-23 22:29 | Operative Report ---
DATE OF OPERATION: 12/23/2018 PREOPERATIVE DIAGNOSES: Acute cholecystitis, cholelithiasis. POSTOPERATIVE DIAGNOSES: Acute cholecystitis, cholelithiasis. OPERATION: Laparoscopic cholecystectomy. SURGEON: Manju Hahn MD SOLUTION SPEC: Elmira Guthrie PA-C ANESTHESIA: General. ESTIMATED BLOOD LOSS: About 20 mL. FINDINGS: Chronic cholecystitis, cholelithiasis, gallbladder wall significant thickening, edema, confirmed diagnosis of acute cholecystitis. COMPLICATIONS: None. INDICATIONS FOR THE PROCEDURE: This is a 68-year-old gentleman who presented to the Emergency Department with a couple of days history of right upper quadrant pain. The patient had a CT scan and ultrasound showed acute cholecystitis with cholelithiasis. The patient will be required to do the laparoscopic cholecystectomy, possible open, possible cholangiogram. I did talk to the patient about the benefit and risk, alternate procedure. I indicated the risks may include but not limited such as bleeding, infection, injury to common bile duct, injury to bowel, may need endoscopic retrograde cholangiopancreatography, myocardial infarction, deep venous thrombosis, stroke and even . The patient understands. He signed informed consent. His was also with him when the patient signed the consent. The patient's also agreed to proceed with the procedure. I answered all questions. DETAILS OF PROCEDURE: We brought the patient to the Operating Room and put the patient in the supine position. The patient received sequential compression devices on bilateral legs to prevent deep venous thrombosis. Also, the patient received 2 grams Ancef I.V. for prophylactic antibiotic. The patient received general anesthesia without difficulty. The abdomen was prepped and draped in routine sterile fashion. After time out, I injected the local anesthesia by using 1% lidocaine mixed with 0.5% Marcaine just above umbilicus, then made a small incision just above umbilicus, opened fascia and opened peritoneum under direct vision, put a Sukhwinder trocar in, connected to CO2 to create pneumoperitoneum. Flow rate at 6 liter per minute. Pressure not more than 14 mmHg. Once we got a nice pneumoperitoneum, we put the camera in, looked around the abdomen, which showed normal finding on the liver. However, the gallbladder showing significant inflammation, gallbladder wall thickening, edema, confirmed diagnosis of acute cholecystitis. Then, we put another three 5 mm trocar on the right upper quadrant. Once all trocars in, we used a grasper to hold the base of the gallbladder because the gallbladder had significant distention, we had to use a large needle to decompress the gallbladder. Once we decompressed the gallbladder, we used a grasper to hold the base of the gallbladder, put direction to the diaphragm and put another grasper to hold the pouch of the gallbladder, put another to expose the triangle of Calot. The cystic duct was identified and mobilized. I put three 5 mm metal clip on the proximal cystic duct. 1 on the distal cystic duct. I used a scissor transecting the cystic duct. Rechecked, no leak, no active bleeding. The cystic artery was identified and mobilized. I put two 5 mm metal clip on the proximal cystic arterial, 1 on the distal cystic duct. I used a scissor for transection of the cystic arterial. Rechecked, no active bleeding. Then, we used the Bovie to take down the gallbladder from the liver bed. Then, we rechecked the liver bed, no active bleeding, no bile leak and then we removed the gallbladder through a catcher bag. Then, we reinserted Sukhwinder trocar in, connected to CO2 to create pneumoperitoneum again looked around the abdomen. No active bleeding, no bile leak from the liver bed. Then, we removed all the trocars under direct vision. No active bleeding from the trocar sites. The pneumoperitoneum was released. Then, we closed the umbilical incision, fascial layer by using #1 Vicryl [id number] x3 and then we closed the subcutaneous layer by using 2-0 Vicryl interruptedly, closed skin by using 4-0 Vicryl continuous running and then we closed another three 5 mm trocar site skin only by using 4-0 Vicryl. Then, we put the dressing on. The patient tolerated the procedure well. All instrument, needle and sponge count were correct x2 at the end of case. The patient was transferred to Recovery Room in a stable condition. The specimen sent to Pathology. I attest to the content of the Intraoperative Record and any orders documented therein. Any exception s are noted below.
[2018-12-24] MEDS: LACTATED RINGER'S 1,000 ML IV SCH ×2 (03:26→15:58)
[2018-12-24] MEDS ORDERED: CEFAZOLIN 2000MG 2,000 MG/15 ML SYR IV SCH (06:00)
[2018-12-24 07:24] LABS: Basophils # (auto) 0.02 K/uL (0-0.2); Basophils % (auto) 0.3 %; Eosinophils % (auto) 4.5 %; Hematocrit (blood only) 40.2 % (42-52); Hemoglobin 13.8 g/dL (14.0-18.0); Immature Granulocytes # (auto) 0.02 K/uL (0.00-0.02); Immature Granulocytes % (auto) 0.3 %; Lymphocytes # (auto) 1.73 K/uL (1.2-3.4); Mean Corpuscular Hgb Conc 34.3 g/dL (32-36); Mean Corpuscular Volume 92.4 fL (80-100); Mean Platelet Volume 9.2 fL (7.4-10.4); Monocytes # (auto) 0.64 K/uL (0.11-0.59); Monocytes % (auto) 9.6 %; Neutrophils # (auto) 3.94 K/uL (1.4-6.5); Neutrophils % (auto) 59.3 %; Platelet Count 191 K/uL (130-400); RDW Coefficient of Variation 13.4 % (11.5-14.5); RDW Standard Deviation 45.4 fL (36.4-46.3); Red Blood Count 4.35 M/uL (4.7-6.1); White Blood Count 6.65 K/uL (4.8-10.8)
[2018-12-24 08:06] LABS: Bilirubin,Total 1.2 mg/dl (0.2-1); Calcium 7.9 mg/dl (8.5-10.1); Creatinine Clr Calc Pharmacy 80.3 ml/min; Est GFR (African American) 88.6; Est GFR (Non-African American) 76.5; Globulin 3.1 gm/dl (2.5-4.0); Potassium 4.2 mmol/L (3.5-5.1); Total Protein 6.1 gm/dl (6.4-8.2)
[2018-12-24] MEDS ORDERED: cefTRIAXone SODIUM 2,000 MG in DEXTROSE 5% 50 ML IV SCH (09:00)
--- NOTE | 2018-12-24 09:10 | Surgery Progress Note ---
Date of Service December 24, 2018, POD 1, S/P lap elder pt is doing better, less abdominal pain, no nausea, no vomiting, WBC normal, (T ) bili 1.2 Assessment & Plan (1) Acute calculous cholecystitis: 68 year-old male who presented to emergency department two nights ago with epigastric pain and now last night with chest/RUQ abdominal pain. CTA of chest and abdominal ultrasound showing gallstones with gallbladder wall thickening, pericholecystic fluid consistent with acute cholecystitis. Labs show no leukocytosis, t. bili, lfts, lipase all wnl. Abdomen is soft, tender in RUQ on deep palpation. Plan: Discussed with patient imaging findings consistent with acute cholecystitis and recommend cholecystectomy. Patient informed of procedure and risks including bleeding, infection, injury to surrounding organs, bile duct injury, bile leak, cardiopulmonary complications including blood clots. Also informed patient of recovery time frame and restrictions. Informed consent will be obtained by Dr. Hahn prior to procedure. Plan to admit patient to medical/surgical floor for observation until OR room available. Start IV fluids LR @ 125 mls/hr, IV Rocephin 1 gm every 12 hours , IV Dilaudid prn pain, IV Zofran prn nausea, activity as tolerated, and kept NPO. Discussed patient with Dr. Hahn who is to see patient later this morning. 12/24/2018 base on Bili 1.2, possible CBD stone. I recommend repeat lab sin am, pt may need ERCP if increase bili, pt agrees with the plan, will F/U Subjective Constitutional: as per Subjective / HPI Physical Exam 2 Vital Signs (Past 24 Hours): Last Vital Signs Temp 36.5 C 12/24/18 07:56 Pulse 64 12/24/18 07:56 Resp 18 12/24/18 07:56 BP 158/86 H 12/24/18 07:56 Pulse Ox 96 12/24/18 07:56 Constitutional: WD/WN, vitals as above well developed and well nourished Neck: trachea midline, no thyromegaly Respiratory: normal respiratory effort, lungs clear to auscultation Cardiovascular: RRR, no murmur, no edema Gastrointestinal (Abdomen): normal bowel sounds, soft, nontender, no hepatosplenomegaly Percussion/Palpation: abdomen soft NT, ND all incisions intact Neurologic: awake Psychiatric: Orientation: alert and oriented x 3 Results & Data Laboratory Results Abnormal lab results 12/24/18 12/24/18 Range/Units 07:02 07:02 RBC 4.35 L (4.7-6.1) M/uL Hgb 13.8 L (14.0-18.0) g/dL Hct 40.2 L (42-52) % [place] # (Auto) 0.64 H (0.11-0.59) K/uL Calcium 7.9 L (8.5-10.1) mg/dl Total Bilirubin 1.2 H D (0.2-1) mg/dl Total Protein 6.1 L (6.4-8.2) gm/dl Albumin 3.0 L (3.4-5.0) gm/dl
[2018-12-24] MEDS: ENOXAPARIN INJ 40 MG/0.4 ML SYR SQ SCH (09:31)
[2018-12-25] MEDS: LACTATED RINGER'S 1,000 ML IV SCH (04:39)
[2018-12-25 05:06] LABS: Basophils # (auto) 0.02 K/uL (0-0.2); Basophils % (auto) 0.3 %; Eosinophils # (auto) 0.38 K/uL (0-0.5); Eosinophils % (auto) 6.4 %; Hematocrit (blood only) 41.6 % (42-52); Hemoglobin 14.2 g/dL (14.0-18.0); Immature Granulocytes # (auto) 0.01 K/uL (0.00-0.02); Immature Granulocytes % (auto) 0.2 %; Lymphocytes # (auto) 1.69 K/uL (1.2-3.4); Lymphocytes % (auto) 28.6 %; Mean Corpuscular Hgb Conc 34.1 g/dL (32-36); Mean Platelet Volume 9.1 fL (7.4-10.4); Monocytes # (auto) 0.59 K/uL (0.11-0.59); Neutrophils # (auto) 3.21 K/uL (1.4-6.5); Neutrophils % (auto) 54.5 %; Platelet Count 201 K/uL (130-400); RDW Standard Deviation 44.1 fL (36.4-46.3); Red Blood Count 4.52 M/uL (4.7-6.1)
[2018-12-25 05:19] LABS: BUN Creatinine Ratio 15.1 (10-20); Calcium 8.2 mg/dl (8.5-10.1); Creatinine Clr Calc Pharmacy 77.2 ml/min; Est GFR (African American) 84.5; Est GFR (Non-African American) 72.9; Potassium 4.4 mmol/L (3.5-5.1)
[2018-12-25 05:22] LABS: Albumin Globulin Ratio 0.9 (0.9-2); Bilirubin,Total 0.7 mg/dl (0.2-1); Globulin 3.5 gm/dl (2.5-4.0); Total Protein 6.5 gm/dl (6.4-8.2)
[2018-12-25] MEDS: ENOXAPARIN INJ 40 MG/0.4 ML SYR SQ SCH (10:15)
--- NOTE | 2018-12-25 11:10 | Surgery Progress Note ---
Date of Service December 25, 2018 pt is doing fine, no no abdominal pain, no nausea, Assessment & Plan (1) Acute calculous cholecystitis: 68 year-old male who presented to emergency department two nights ago with epigastric pain and now last night with chest/RUQ abdominal pain. CTA of chest and abdominal ultrasound showing gallstones with gallbladder wall thickening, pericholecystic fluid consistent with acute cholecystitis. Labs show no leukocytosis, t. bili, lfts, lipase all wnl. Abdomen is soft, tender in RUQ on deep palpation. Plan: Discussed with patient imaging findings consistent with acute cholecystitis and recommend cholecystectomy. Patient informed of procedure and risks including bleeding, infection, injury to surrounding organs, bile duct injury, bile leak, cardiopulmonary complications including blood clots. Also informed patient of recovery time frame and restrictions. Informed consent will be obtained by Dr. Hahn prior to procedure. Plan to admit patient to medical/surgical floor for observation until OR room available. Start IV fluids LR @ 125 mls/hr, IV Rocephin 1 gm every 12 hours , IV Dilaudid prn pain, IV Zofran prn nausea, activity as tolerated, and kept NPO. Discussed patient with Dr. Hahn who is to see patient later this morning. 12/24/2018 , Dr. Hahn base on Bili 1.2, possible CBD stone. I recommend repeat lab sin am, pt may need ERCP if increase bili, pt agrees with the plan, will F/U 12/25/2018, DR. Hahn pt is doing fine, pt wants to go home, the post-op care instruction was given, Subjective Constitutional: as per Subjective / HPI Physical Exam 2 Vital Signs (Past 24 Hours): Last Vital Signs Temp 36.5 C 12/25/18 07:01 Pulse 73 12/25/18 07:01 Resp 18 12/25/18 07:01 BP 157/96 H 12/25/18 07:01 Pulse Ox 94 12/25/18 07:01 Constitutional: WD/WN, vitals as above Neck: trachea midline, no thyromegaly Respiratory: normal respiratory effort, lungs clear to auscultation Cardiovascular: RRR, no murmur, no edema Gastrointestinal (Abdomen): Percussion/Palpation: abdomen soft NT, ND BS + all incisions heal well, Neurologic: awake Psychiatric: Orientation: alert and oriented x 3 Results & Data Laboratory Results Abnormal lab results 12/25/18 12/25/18 Range/Units 04:44 04:44 RBC 4.52 L (4.7-6.1) M/uL Hct 41.6 L (42-52) % Chloride 108 H (98-107) mmol/L Calcium 8.2 L (8.5-10.1) mg/dl Albumin 3.0 L (3.4-5.0) gm/dl
--- NOTE | 2018-12-25 20:18 | Discharge Summary ---
ADMITTING DIAGNOSES: Acute cholecystitis, cholelithiasis. POSTOPERATIVE DIAGNOSES: Acute cholecystitis, cholelithiasis. OPERATION: Laparoscopic cholecystectomy. SURGEON: Manju Hahn MD DETAILS OF DISCHARGE SUMMARY: This is a 68-year-old gentleman who presented to the Emergency Department with acute abdominal pain. The patient had a CT scan with a diagnosis of acute cholecystitis, cholelithiasis. We offered the patient to do the laparoscopic cholecystectomy and the patient tolerated the procedure well. After the procedure, the patient was transferred to Recovery Room and later on transferred to Regular Floor. The patient is doing fine. The patient has no nausea, no vomiting and no abdominal pain. He tolerated diet. PHYSICAL EXAMINATION: VITAL SIGNS: Temperature is 36.5. Respiratory rate 18. Blood pressure 157/96. Heart rate is 73. O2 saturation 94% on room air. GENERAL: The patient is alert, awake and oriented x3. NECK: No JVD. HEENT: With normal limitation. CHEST: Bilaterally, lung sounds clear. HEART: Normal S1, S2. No murmur. ABDOMEN: Soft. Nondistended. No tenderness. All incision intact. Bowel sounds positive. EXTREMITIES: No edema. PLAN: The patient wanted to go home and we gave the patient the postoperative instructions. The patient understands. We will follow up the patient in 2 weeks. Also, today, all the laboratories with WBC and liver function are normal.
== END 2018-12-25 13:30 | disposition home or self-care (01) ==
LOC: ED 03:56 → 3W 03:56

== ENCOUNTER 2020-04-03 10:51 | Inpatient (IN) ==
--- NOTE | 2020-04-02 09:03 | Anesthesiology Consultation ---
Date of Service April 02, 2020 Assessment & Plan (1) Encounter for pre-operative examination: Chart Review Chart Review: Acceptable Risk for Surgery and Patient NOT seen in Pre Admission Testing Per 04/02/20 nursing assessment, pt resides in [facility]. No other travel. No known contact with PUIs or Covid positive people. No current Covid related symptoms or history of Covid testing Seen by PCP 01/03/20= "Pending preadmission testing, using revised cardiac risk index, patient is considered low risk for anticipated surgery." Right knee retinacular repair 09/29/17= Done under SAB at L3/4. Two attempts (1st attempt at L4/5). History Surgery Operation Date: 04/03/20 12:50 Proposed Procedures p Left Total Knee Arthroplasty - Darío Riggins MD Height/Weight Height: 5 ft 9.5 in Weight: 90.718 kg Allergies Allergy/AdvReac Type Severity Reaction Status Date / Time bee venom protein (honey bee) Allergy Severe ANALPHYLAXI Verified 04/02/20 07:31 S Medications Home Medications Medication Instructions Recorded Confirmed Last Taken Centrum Silver Men 1 tab PO QAM 01/12/19 04/02/20 01/31/19 celecoxib 200 mg capsule 200 mg PO DAILY PRN #90 cap 09/11/19 04/02/20 Unknown omeprazole 20 mg PO QAM 12/13/19 04/02/20 Unknown Past Medical History Medical History (Updated 04/02/20 @ 09:01 by Elisa Carolina PA-C) Borderline hypertension Per records Chronic pain of left knee GERD (gastroesophageal reflux disease) controlled Lumbar spinal stenosis Past Family History Family History Mother Hypertension Stroke Sister Liver transplant recipient Father Stroke Hypertension Myocardial infarction Coronary heart disease Other Family history non-contributory Denies family history of Ovarian cancer Prostate cancer Diabetes Breast cancer Past Surgical History Surgical History H/O repair of right rotator cuff H/O right inguinal hernia repair History of cholecystectomy 12/23/18: Grade view 1, Seo#2, ETT 8.0 at [facility] History of left inguinal hernia repair History of mandibular surgery History of Mohs micrographic surgery for skin cancer FACE History of revision of total replacement of right knee joint History of total right knee replacement (TKR) Social History Smoking Status: Never smoker Do You Dip or Chew Tobacco: No Hx Alcohol Use: Yes Alcohol type: beer alcohol intake frequency: a few times a week Hx Substance Use: No substance use type: does not use Testing Laboratory Results Laboratory Tests 01/12/20 03/28/20 03/28/20 11:24 13:04 13:04 WBC 6.91 Hgb 14.2 Hct 41.4 L Plt Count 220 PT INR APTT Sodium 138 Potassium 4.2 Chloride 107 Carbon Dioxide 27 BUN 15 Creatinine 1.03 Glucose 84 Hemoglobin A1c 5.2 03/28/20 13:04 WBC Hgb Hct Plt Count PT 10.8 INR 1.0 APTT 25.9 Sodium Potassium Chloride Carbon Dioxide BUN Creatinine Glucose Hemoglobin A1c Electrocardiogram Date: 01/12/20 Findings: + NSR @ (60) Chest X-Ray Date: 01/12/20 Cardiac silhouette is mildly enlarged. Thoracic aortic tortuosity. No pneumothorax, pleural effusion, airspace consolidation or overt pulmonary edema. Subcentimeter nodular opacity projecting over the left upper lung at the level of the aortic arch is likely secondary to summation density. There is minimal linear subsegmental left basilar atelectasis/scarring. IMPRESSION: No acute process. Results forwarded to PCP for their reference in December 2019.
--- NOTE | 2020-04-02 09:06 | Communication Note ---
Date of Service: April 02, 2020 COVID 19 assessment: pt history/travel reviewed. low risk at this time. Will be reassessed day of surgery.
--- NOTE | 2020-04-02 21:06 | History and Physical Report ---
DATE OF ADMISSION: 04/03/2020 CHIEF COMPLAINT: Left knee pain. HISTORY OF PRESENT ILLNESS: This is a 69-year-old male patient of Dr. Riggins'lashaun complaining of chronic left knee pain, longstanding, now progressively getting worse. The patient has failed conservative treatment including Celebrex, viscosupplementation, home exercise program. The patient has increased pain with weightbearing activities and his pain does interfere with his activities of daily living. The patient has been diagnosed with end-stage osteoarthritis per clinical and radiographic exams in the left knee and wishes to proceed with a left total knee arthroplasty. PAST MEDICAL HISTORY: Osteoarthritis, TMJ, spine problems, neck problems, sciatica, acid reflux, basal cell carcinoma. SOCIAL HISTORY: Nonsmoker, occasional drinker. PAST SURGICAL HISTORY: Abdominal hernia, jaw surgery, shoulder surgery, inguinal hernia surgery, right total knee revision, gallbladder removal, ulnar nerve transposition in the elbow. FAMILY HISTORY: Noncontributory. REVIEW OF SYSTEMS: Chronic left knee pain, otherwise denies any shortness of breath, chest pain, nausea, vomiting or any other joint complaint. MEDICATIONS: Omeprazole 20 mg daily, Centrum Silver daily, Celebrex 200 mg daily as needed. ALLERGIES: BEE VENOM. PHYSICAL EXAMINATION: GENERAL: Well-developed, well-nourished 69-year-old male in no acute distress. He is alert and oriented x3 and pleasant. HEENT: Normocephalic, atraumatic. Extraocular motions are intact. Pupils are equal and reactive to light. HEART: Regular rate and rhythm, no murmurs. LUNGS: Clear. ABDOMEN: Soft, nontender, bowel sounds present. EXTREMITIES: Left knee positive crepitation, positive medial joint line tenderness, varus deformity. Range of motion to 0-130, 5/5 strength. Neurologically and neurovascularly, he is intact in his left lower extremity. DIAGNOSES: Left knee end-stage osteoarthritis, osteoarthritis, temporomandibular problems, spine problems, neck problems, sciatica, acid reflux, and basal cell carcinoma. PLAN: The patient was advised of his diagnosis. Indications, risks, benefits, postop course have all been reviewed. The patient wished to proceed with a left total knee arthroplasty. Necessary consent forms, preoperative testing and clearances will be obtained. KIA
[~2020-04-03 10:51] MED LIST changes: +ACETAMINOPHEN 500 MG TAB PO SCH; -ASPI-320 PO; +BUPIVACAINE 0.25% 30 ML VIAL ONE; +BUPIVACAINE 0.5 % 5 MG/1 ML PF 10ML VIAL ONE; +CEFAZOLIN 2000MG 2,000 MG/15 ML SYR IV SCH; +CeleBREX 200 MG CAP PO SCH; +FAMOTIDINE 20 MG TAB PO SCH; +GABAPENTIN 300 MG CAP PO SCH; +LR 500ML BOLUS, THEN 15ML/HR IV SCH; +METOCLOPRAMIDE HCL 10 MG TABLET PO SCH; -MULT-1093 PO; -PRLSR20 PO; +ROPIVACAINE 0.5% HCL/PF 150 MG, BUPIVACAINE 0.5% MPF 30 ML, EPINEPHrine 30MG/30ML (OR U... INFIL SCH; -RXC5 PO; +TRANEXAMIC ACID 1,000 MG **IV Pre-op IV SCH; +dexAMETHasone 4 MG TAB PO SCH
[2020-04-03] MEDS ORDERED: PROPOFOL IV EMULSION 10 MG/ML 20 ML VIAL IV ONE ×3 (11:18→13:29)
[2020-04-03] MEDS ORDERED: MIDAZOLAM HCL 1 MG/ML 2ML VIAL ONE (11:18)
[2020-04-03] MEDS ORDERED: fentaNYL citrate 100 MCG/2 ML VIAL IV PRN (12:05)
[2020-04-03] MEDS ORDERED: ATROPINE SULFATE 0.1 MG/ML 10ML SYR IV PRN (12:05)
[2020-04-03] MEDS ORDERED: ONDANSETRON INJ 2 MG/ML 2 ML VIAL IV PRN ×2 (12:05→16:22)
[2020-04-03] MEDS ORDERED: HYDROmorphone INJ 1 MG/ML SYRINGE IV PRN (12:05)
[2020-04-03] MEDS ORDERED: ePHEDrine sulfate 50 MG/ML AMP IV PRN (12:05)
[2020-04-03] MEDS ORDERED: BACITRACIN INJ 50,000 UNIT VIAL ONE (12:15)
[2020-04-03] MEDS ORDERED: ORTHO JOINT ANESTHETIC ONE (12:15)
--- NOTE | 2020-04-03 12:16 | History & Physical Bridge Note ---
Date of Service April 03, 2020 History & Physical Bridge Note I have examined the patient, reviewed the History & Physical and in the interval since the performance of the History & Physical I have noted the following changes of clinical significance: no changes noted
[2020-04-03] MEDS: TRANEXAMIC ACID 1,000 MG **IV Intra-op IV SCH ×2 (12:19→16:27)
--- NOTE | 2020-04-03 14:38 | Post Operative Brief Note ---
Immediate Post Op Note v1 Date of Surgery April 03, 2020 Pre & Post Diagnosis Operation Date: 04/03/20 12:35 Pre-Op Diagnosis: LEFT KNEE OSTEOARTHRITIS Post-Op Diagnosis: LEFT KNEE OSTEOARTHRITIS I identified the patient and participated in the time-out.: Yes Procedure Operation Date: 04/03/20 12:35 Actual Procedures p Left Total Knee Arthroplasty(Left) - Darío Riggins MD Surgeon Darío Riggins MD Sludge Mill Operator JOSE Lancaster Estimated Blood Loss 5 Findings Consistent with Post-Op Diagnosis Specimens Bone cuts Drains Hemovac Drain Anesthesia Type MAC Spinal Regional Complications none Disposition Accompanied Patient To Recovery: No Disposition: Recovery Room Overlapping Procedure I was immediately available: during the entire case.
--- NOTE | 2020-04-03 14:45 | Operative Report ---
Post Operative Report Pre & Post Diagnosis Operation Date: 04/03/20 12:35 Pre-Op Diagnosis: LEFT KNEE OSTEOARTHRITIS Post-Op Diagnosis: LEFT KNEE OSTEOARTHRITIS I identified the patient and participated in the time-out.: Yes Procedure Operation Date: 04/03/20 12:35 Actual Procedures p Left Total Knee Arthroplasty(Left) - Darío Riggins MD Surgeon Darío Riggins MD Sap Abap Programmer JOSE Lancaster Estimated Blood Loss 5 Findings Consistent with Post-Op Diagnosis Specimens Bone cuts Drains 2 Hemovac Anesthesia Type MAC Spinal Regional Complications none Disposition Accompanied Patient To Recovery: No Disposition: Recovery Room Indications 69-year-old male who has end-stage osteoarthritis of his left knee progressive over time failed conservative management including injections bracing medical management. Radiographs demonstrate [id number] subluxation the femur medially on the tibia varus knee tricompartmental osteoarthritis. History of right knee replacement in the past complicated by wound healing problems and VMO attenuation and patellofemoral malalignment requiring revision surgery. Currently doing satisfactory with the right knee. Description of Procedure The patient was taken to the operating room and anesthetized under spinal MAC regional. Patient was placed supine on the the operating table. A pneumatic tourniquet was placed about the left upper thigh. The knee exam demonstrated 10 through 130 degrees range of motion no pseudolaxity positive Fantasma exam negative pivot shift. The involved leg was elevated exsanguinated with Esmarch bandage and the pneumatic tourniquet was raised to 325 millimeters mercury. A longitudinal incision was made across the anterior knee. Skin flaps were elevated. An incision was made into the medial retinaculum and extended up into the mid third of the quadriceps tendon and extended down to the tibial tubercle. Intra-articular findings demonstrated tricompartmental DJD chronic ACL tear chronic knee meniscus tear [id number] medial compartment tricompartmental OA multiple loose bodies. The knee was exposed by excising posterior cruciate ligament and menisci. The infrapatellar fat pad was resected. The fat pad over the anterior femur at the upper aspect of the articular surface was resected for placement of the component in that area. A subperiosteal peel lateral release was performed around the patella. Lateral synovial bands release. All loose bodies were excised and some the inflamed synovium was resected. The Gautam [employer] Nephew journey 2.0 posterior stabilized total knee arthroplasty system was utilized for the procedure. The custom femoral cutting guide was pinned in position. The distal femoral cut was made. The size 8, 5 in 1 cutting block was placed. The anterior posterior and chamfer cuts were made. The knee was extended and a free hand cut technique was performed to the patella. The patella with was measured and the width was reproduced using a 41 symmetrical patella component. 3 drill holes are made for the patella component pegs. The tibia was then subluxed. The custom tibial cutting block was pinned in position and the proximal tibial cut was made with the oscillating saw. Flexion extension gaps were balanced I did do medial some posterior medial release to balance the gaps. The size 7 tibial trial was externally rotated in line with the tibial tubercle and pinned in position. The punch for the stem was used. The femoral trial was inserted and centered the notch cutting devices were used and the collet was placed. Tibial trials were used for the insert. The size 11 trial gave balanced ligaments through full range of motion. Patella tracking was assessed with range of motion. The patella tracked centrally. The trials were removed. The Orthomix anesthetic cocktail was injected per protocol. The cut bone surfaces and soft tissue were copiously irrigated with antibiotic solution with bacitracin. The final components were cemented with Simplex cement. The final components were Gautam [employer] Nephew journey 2.0 posterior stabilized left size 8 femoral component, 7 tibial baseplate, 11 posterior stabilized high flex poly-insert, 41 symmetrical patella. While the cement cured the Betadine soak was used per protocol. When the cement cured the knee was copiously irrigated with pulsatile lavage antibiotic solution with bacitracin. 2 drains were brought out laterally connected to Hemovac. The quadriceps tendon and medial retinaculum were closed with interrupted [id number] #1 Vicryl sutures. The knee was taken through full range of motion and repair was secure. Patient had 0 through 140 degrees range of motion. The subcutaneous tissues were closed with 2-0 Vicryl sutures. The skin was closed with monica. A Silverlon sterile dressing was applied. The tourniquet was let down and the patient had good capillary refill to the extremity. The patient tolerated the procedure well. My physician political science research assistant JOSE Lancaster assisted in the procedure including prepping draping leg positioning soft tissue retraction instrument management and assisted in the closure ,dressings application and will participate in postoperative care the patient. I attest to the content of the Intraoperative Record and any orders documented therein. Any exceptions are noted below.
--- NOTE | 2020-04-03 15:06 | XRay Report ---
XR knee LT 1 or 2V routine CLINICAL HISTORY: Surgical Post Op COMPARISON: None. DISCUSSION: Anatomic alignment post total left knee arthroplasty. Good contact between prosthetic and underlying bone. Expected postoperative soft tissue change. IMPRESSION: Anatomic alignment posttotal left knee arthroplasty. ACT 112: Negative or not required by law. The above report was generated using voice recognition software. It may contain grammatical, syntax or spelling errors. Electronically signed by: Shaq Pollack M.D. 04/03/2020 3:05 PM
[2020-04-03] MEDS ORDERED: HYDROmorphone INJ 0.5 MG/0.5 ML SYR IV PRN (16:22)
[2020-04-03] MEDS ORDERED: MAGNESIUM HYDROXIDE SUSP 30 ML UDC PO PRN (16:22)
[2020-04-03] MEDS ORDERED: bisacodyL 10 MG SUPP PR PRN (16:22)
[2020-04-03] MEDS ORDERED: NALOXONE HCL 0.4 MG/1 ML VIAL/CARP IV PRN (16:22)
[2020-04-03] MEDS ORDERED: OXYCODONE HCL IR 5 MG TAB (IMMEDIATE RELEASE) PO PRN (16:22)
--- NOTE | 2020-04-03 16:34 | Anesthesiology Progress Note ---
Date of Service April 03, 2020 Anesthesia Post Procedure Vital Signs Vital Signs: Temp Pulse Pulse Resp BP BP Pulse Ox 04/03/20 16:20 36.8 C 63 18 147/82 H 95 04/03/20 16:00 60 14 132/75 95 04/03/20 15:50 36.8 C 59 L 15 128/78 95 04/03/20 15:40 65 16 133/75 93 04/03/20 15:30 60 12 142/89 H 96 04/03/20 15:20 66 18 131/82 95 04/03/20 15:10 67 14 136/81 97 04/03/20 15:00 72 13 140/90 99 04/03/20 14:50 80 12 141/82 H 98 04/03/20 14:44 36.8 C 99 H 19 150/85 H 97 04/03/20 11:27 36.8 C 70 18 144/93 H 95 Transfer of Care Handoff Completed per policy Notes Mental Status: alert / awake / arousable and participated in evaluation Patient Amnestic to Procedure: Yes Nausea / Vomiting: adequately controlled Pain: adequately controlled Airway Patency, RR, SpO2: stable & adequate BP & HR: stable & adequate Hydration State: stable & adequate Neuraxial Anesthesia: was administered and sensory block is resolving Anesthetic Complications: no major complications apparent and Pt Satisfied with anesthetic care
[2020-04-03] MEDS: SODIUM CHLORIDE 0.9% 1000ML 1,000 ML IV SCH (17:32)
--- NOTE | 2020-04-03 17:37 | Consultation ---
Date of Consultation April 03, 2020 Assessment & Plan (1) Borderline hypertension: Does not take meds for HTN. Several readings today have been minimally elevated - certainly acceptable in the setting of his surgery. Will simply follow readings for large spikes. (2) Arthritis of left knee: s/p left TKR by Dr Riggins today. defer pain management, DVT proph, IV fluids, and dispo to primary orthopedic team. of note - preop CBC, BMP on 03/28/20 were well within normal limits. check post-op cbc, bmp tomorrow AM for stability. (3) Hyperlipidemia: does not take any meds for such on routine basis. LDL 114 in 09/2019. f/u with PCP for routine surveillance. (4) Lumbar spinal stenosis: chronic. celebrex, etc will help with chronic pain. (5) GERD (gastroesophageal reflux disease): cont PPI (6) DVT prophylaxis: it appears orthopedics has selected asa 81mg BID for DVT proph x 1 month. Thank you for this consult. Medically patient is quite healthy at baseline with little to no problems. Will sign off. Please reconsult if necessary for acute issues. History of Present Illness Requesting Physician: Darío Riggins MD Reason for Consultation: post-op medical management Attending Physician: Darío Riggins MD History of Present Illness Pleasant 69yo male with h/o GERD and long-standing DJD of left knee and DJD of back who presented for elective left TKR today. I saw the patient post-op from his TKR on the orthopedic floor. He was resting comfortably and just finished his dinner. He denied any complaints to me. Ate his meal without nausea/emesis/abdominal pain. Denied dyspnea or chest pain. Reports using his PPI on prn basis at home. Allergies Allergy/AdvReac Type Severity Reaction Status Date / Time bee venom protein (honey bee) Allergy Severe ANALPHYLAXI Verified 04/03/20 11:20 S Home Medications Home Medications Medication Instructions Recorded Confirmed Type Centrum Silver Men 1 tab PO QAM 01/12/19 04/03/20 History celecoxib 200 mg capsule 200 mg PO DAILY PRN #90 cap 09/11/19 04/03/20 Rx omeprazole 20 mg PO QAM 12/13/19 04/03/20 History Patient History Medical History Borderline hypertension Per records Chronic pain of left knee GERD (gastroesophageal reflux disease) controlled Lumbar spinal stenosis Surgical History H/O repair of right rotator cuff H/O right inguinal hernia repair History of cholecystectomy 12/23/18: Grade view 1, Seo#2, ETT 8.0 at [facility] History of left inguinal hernia repair History of mandibular surgery History of Mohs micrographic surgery for skin cancer FACE History of revision of total replacement of right knee joint History of total right knee replacement (TKR) Status post decompression of ulnar nerve at elbow (Acute) right elbow Family History Mother Hypertension Stroke Sister Liver transplant recipient Father Stroke Hypertension Myocardial infarction Coronary heart disease Denies family history of Ovarian cancer Prostate cancer Diabetes Breast cancer Social History (Updated 04/04/20 @ 01:28 by Rob Kruse) Preferred Language: Kinyarwanda Communication Ability: Effective Visual Impairment: No Limitations Hearing Ability: Normal Auto Bumper Mechanic Required: No Beliefs That Will Affect Care: None marital status: Current Living Situation: Spouse current occupational status: retired 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 Feels Safe at Home: Yes Safety Concerns: Feels Safe At This Time Smoking Status: Never smoker Do You Dip or Chew Tobacco: No ; Second Hand Exposure: No ; Tobacco Cessation Education Requested by Patient: No Hx Alcohol Use: Yes Alcohol type: beer Alcohol Intake Frequency Comment: 1 drink per day Hx Substance Use: No Childhood Exposure to Second-Hand Smoke: No Diet Comment: regular caffeine: Yes (coffee) during the past year weight has: remained stable Dental Care, Regularly: Yes Physical Activity Frequency: Daily Physical Activity Frequency Comment: walking Seatbelt Use: always Sunscreen Use: Yes Review of Systems Constitutional: no fever, no chills and no anorexia Eyes: no worsening vision Ear, Nose, Mouth, Throat: no sore throat and no dysphagia Respiratory: no cough and no dyspnea Cardiovascular: no chest pain Gastrointestinal: no abdominal pain, no nausea and no vomiting Genitourinary: no dysuria Musculoskeletal: + back pain and + joint pain Integumentary: no rash Neurologic: no paresthesia Psychiatric: no depression Endocrine: denies diabetes Hematologic / Lymphatic: + easy bruising Allergy / Immunological: no seasonal rhinorrhea Physical Exam Constitutional: well developed and well nourished; no acute distress and no altered mental status Eyes: + anicteric sclerae ENMT: external ear and nose normal, oropharynx normal Respiratory: normal respiratory effort, lungs clear to auscultation Cardiovascular: Rate/Rhythm: regular rate and regular rhythm Heart Sounds: normal S1 and normal S2; no murmur Vessels: posterior tibial pulses present and dorsalis pedis pulses present; no JVD Extremities: no edema Gastrointestinal (Abdomen): normal bowel sounds, soft, nontender, no hepatosplenomegaly Musculoskeletal: left knee drain in place; dressings intact left knee Skin: no rashes, warm and dry Neurologic: moves all extremities (LEs still under the effects of anesthesia ) Psychiatric: Orientation: alert and oriented x 3 Lymphatic: no cervical lymphadenopathy Results & Data ([facility]) Vital Signs (Past 12 Hours) Vital Signs Temp Pulse Pulse Resp BP BP Pulse Ox 04/03/20 17:29 36.4 C L 63 18 135/83 97 04/03/20 16:57 36.4 C L 62 16 145/81 H 97 04/03/20 16:20 36.8 C 63 18 147/82 H 95 04/03/20 16:00 60 14 132/75 95 04/03/20 15:50 36.8 C 59 L 15 128/78 95 04/03/20 15:40 65 16 133/75 93 04/03/20 15:30 60 12 142/89 H 96 04/03/20 15:20 66 18 131/82 95 04/03/20 15:10 67 14 136/81 97 04/03/20 15:00 72 13 140/90 99 04/03/20 14:50 80 12 141/82 H 98 04/03/20 14:44 36.8 C 99 H 19 150/85 H 97 04/03/20 11:27 36.8 C 70 18 144/93 H 95 PG Care Time/CCT Total # of Minutes Spent Total Time Spent with Patient: Total time spent is greater than 50% in coordination of care (as documented) at patient's floor/unit and/or counseling patient: Coding Level of Care Code 06162 Subseq Obs Care Lvl 2 Diagnoses Borderline hypertension R03.0 Arthritis of left knee M17.12 Hyperlipidemia E78.00; E78.0 Hyperlipidemia type: pure hypercholesterolemia Lumbar spinal stenosis M48.061 Neurogenic claudication status: without neurogenic claudication GERD (gastroesophageal reflux disease) K21.9 Esophagitis presence: esophagitis presence not specified DVT prophylaxis Z29.9 (1) Hyperlipidemia Hyperlipidemia type: pure hypercholesterolemia Qualified Code(s): E78.00 - Pure hypercholesterolemia, unspecified; E78.0 - Pure hypercholesterolemia (2) Lumbar spinal stenosis Neurogenic claudication status: without neurogenic claudication Qualified Code(s): M48.061 - Spinal stenosis, lumbar region without neurogenic claudication (3) GERD (gastroesophageal reflux disease) Esophagitis presence: esophagitis presence not specified Qualified Code(s): K21.9 - Gastro-esophageal reflux disease without esophagitis
[2020-04-03] MEDS: CEFAZOLIN 2000MG 2,000 MG/15 ML SYR IV SCH (19:58)
[2020-04-03] MEDS: SENNA 8.6 MG TAB PO SCH (20:37)
[2020-04-03] MEDS: DOCUSATE SODIUM 100 MG CAP PO SCH (20:37)
[2020-04-03] MEDS: CeleBREX 200 MG CAP PO SCH (20:37)
[2020-04-03] MEDS: ASPIRIN 81 MG ECTAB PO SCH (21:02)
[2020-04-03] MEDS: ACETAMINOPHEN 500 MG TAB PO SCH (21:02)
[2020-04-04] MEDS: SODIUM CHLORIDE 0.9% 1000ML 1,000 ML IV SCH (04:05)
[2020-04-04] MEDS: ACETAMINOPHEN 500 MG TAB PO SCH ×3 (04:10→22:02)
[2020-04-04] MEDS: CEFAZOLIN 2000MG 2,000 MG/15 ML SYR IV SCH (04:10)
[2020-04-04 05:54] LABS: Hemoglobin 12.8 g/dL (14.0-18.0); Mean Corpuscular Hemoglobin 31.9 pg (25-34); Mean Corpuscular Hgb Conc 34.6 g/dL (32-36); Mean Corpuscular Volume 92.3 fL (80-100); Mean Platelet Volume 9.3 fL (7.4-10.4); Platelet Count 228 K/uL (130-400); RDW Coefficient of Variation 13.2 % (11.5-14.5); RDW Standard Deviation 44.8 fL (36.4-46.3); Red Blood Count 4.01 M/uL (4.7-6.1); White Blood Count 9.61 K/uL (4.8-10.8)
[2020-04-04 06:32] LABS: BUN Creatinine Ratio 14.5 (10-20); Calcium 8.2 mg/dl (8.5-10.1); Creatinine Clr Calc Pharmacy 71.7 ml/min; Est GFR (African American) 78.4; Est GFR (Non-African American) 67.7; Potassium 4.3 mmol/L (3.5-5.1)
[2020-04-04] MEDS: ASPIRIN 81 MG ECTAB PO SCH ×2 (08:51→22:03)
[2020-04-04] MEDS: CEROVITE ADV FORMULA TAB PO SCH (08:51)
[2020-04-04] MEDS: PANTOprazole 40 MG TAB PO SCH (08:51)
[2020-04-04] MEDS: DOCUSATE SODIUM 100 MG CAP PO SCH ×2 (08:52→22:02)
[2020-04-04] MEDS: CeleBREX 200 MG CAP PO SCH ×2 (08:52→22:02)
[2020-04-04] MEDS ORDERED: MULTIVITAMIN TAB PO SCH (09:00)
--- NOTE | 2020-04-04 10:30 | Orthopedic Progress Note ---
Date of Service April 04, 2020 Assessment & Plan (1) S/P total knee arthroplasty: POD#1 left TKA -PT/OT -Pain management -DVT prophylaxis-ASA 81mg BID, SCDs, TEDs -AM labs-hemoglobin 12.8 from 14.2 preop. -Hemovac still putting out a moderate amount, will keep in today -D/C planning-home with HHPT and then transition to OPPT when stable, discharge likely tomorrow Admission and Anticipated Discharge Date Admission Date: April 03, 2020 Subjective Patient seen in bedside chair this morning, pain well controlled with ordered medication. Working with PT, just finished walking. Denies chest pain, sob, light headed,n/v/d Review of Systems Review of Systems: All systems reviewed & are unremarkable except as noted in HPI & below Physical Exam Physical Exam: Dressing to left knee is c/d/i, no calf tenderness, Hemovac in place, toes are mobile with good dorsiflexion. Distally n/v status and sensation intact. Constitutional: well developed and well nourished; no acute distress Results & Data ([facility]) Vital Signs (Past 12 Hours) Vital Signs Temp Pulse Pulse Resp BP Pulse Ox 04/04/20 07:09 36.6 C 62 16 131/73 96 04/04/20 03:12 36.5 C 65 17 125/72 96 04/03/20 23:42 36.5 C 62 17 126/74 94 Laboratory Results H & H 04/04/20 Range/Units 05:05 Hgb 12.8 L (14.0-18.0) g/dL Hct 37.0 L (42-52) % (1) S/P total knee arthroplasty Laterality: left Qualified Code(s): Z96.652 - Presence of left artificial knee joint
[2020-04-04] MEDS: SENNA 8.6 MG TAB PO SCH (22:03)
[2020-04-05] MEDS: ACETAMINOPHEN 500 MG TAB PO SCH (05:11)
[2020-04-05 05:51] LABS: Hematocrit (blood only) 34.3 % (42-52); Hemoglobin 11.5 g/dL (14.0-18.0); Mean Corpuscular Hemoglobin 31.4 pg (25-34); Mean Corpuscular Hgb Conc 33.5 g/dL (32-36); Mean Corpuscular Volume 93.7 fL (80-100); Mean Platelet Volume 9.5 fL (7.4-10.4); Platelet Count 222 K/uL (130-400); RDW Coefficient of Variation 13.5 % (11.5-14.5); RDW Standard Deviation 46.6 fL (36.4-46.3); Red Blood Count 3.66 M/uL (4.7-6.1); White Blood Count 9.39 K/uL (4.8-10.8)
[2020-04-05 06:27] LABS: BUN Creatinine Ratio 15.4 (10-20); Calcium 7.7 mg/dl (8.5-10.1); Creatinine Clr Calc Pharmacy 60.7 ml/min; Est GFR (African American) 64.1; Est GFR (Non-African American) 55.3; Potassium 4.2 mmol/L (3.5-5.1)
--- NOTE | 2020-04-05 07:24 | Orthopedic Progress Note ---
Date of Service April 05, 2020 Assessment & Plan (1) S/P total knee arthroplasty: POD#2 left TKA -PT/OT -Pain management -DVT prophylaxis-ASA 81mg BID, SCDs, TEDs -D/C planning-home with HHPT today. Admission and Anticipated Discharge Date Admission Date: April 03, 2020 Subjective POD #2, Patient seen in bedside chair this morning, pain well controlled with ordered me dication. Denies chest pain, sob, light headed,n/v/d Physical Exam Physical Exam: Left knee silverlon in tact w no drainage. No calf tenderness. Toes/ ankle mobile A&Ox3. Results & Data ([facility]) Vital Signs (Past 12 Hours) Vital Signs Temp Pulse Pulse Resp BP Pulse Ox 04/05/20 07:08 36.5 C 54 L 16 134/76 98 04/04/20 23:21 36.5 C 61 16 135/80 98 (1) S/P total knee arthroplasty Laterality: left Qualified Code(s): Z96.652 - Presence of left artificial knee joint
[2020-04-05] MEDS: CEROVITE ADV FORMULA TAB PO SCH (08:41)
[2020-04-05] MEDS: ASPIRIN 81 MG ECTAB PO SCH (08:41)
[2020-04-05] MEDS: DOCUSATE SODIUM 100 MG CAP PO SCH (08:41)
[2020-04-05] MEDS: CeleBREX 200 MG CAP PO SCH (08:41)
[2020-04-05] MEDS: PANTOprazole 40 MG TAB PO SCH (08:42)
--- NOTE | 2020-04-17 19:36 | Discharge Summary (DS) ---
HISTORY OF PRESENT ILLNESS: This is a 69-year-old male patient of Dr. Riggins's complaining of chronic left knee pain, longstanding, progressively getting worse. The patient has failed conservative treatment. The patient was diagnosed with end-stage osteoarthritis per clinical and radiographic exams and elected to proceed with a left total knee arthroplasty. PAST MEDICAL HISTORY: Osteoarthritis, TMJ, spine problems, neck problems, sciatica, acid reflux, and history of basal cell carcinoma. POSTOPERATIVE COURSE: The patient underwent a left total knee arthroplasty on 04/03/2020. He was followed closely with medical consultation, DVT prophylaxis in the form of aspirin, physical therapy and pain control. The patient did very well postoperatively with no issues. PHYSICAL EXAMINATION ON DISCHARGE: Left knee Silverlon dressing was clean, dry and intact. There was no redness or drainage, no calf tenderness. Negative Homans sign. Toes and ankle were mobile. Neurologically and neurovascularly, he was intact in his left lower extremity. DIAGNOSES: Status post left total knee arthroplasty, osteoarthritis, temporomandibular joint, spine problems, neck problems, sciatica, acid reflux, and basal cell carcinoma. PLAN: The patient was discharged home with home health services. He will continue his preadmission medications with the addition of aspirin for DVT prophylaxis and pain medications. The patient will follow up as scheduled as an outpatient with Dr. Riggins.
== END 2020-04-05 13:01 | disposition home health service (06) | DRG 470 ==
LOC: ASU 10:51 → 3E 14:45